=== PATIENT | male | born 1945 | race Caucasian/White ===

== ENCOUNTER 2018-05-18 18:18 | Inpatient (IN) | payer MEDICARE, OTHER ==
[~2018-05-18] VITALS: Ht 182.9 cm; Wt 109.0 kg
[~2018-05-18 18:18] MED LIST: BENADRYL; CETI10TA; FINA5TAB4; FLUT16SP24; GABA300C16; LISI10TA2; OMEP20CA16; PSEU1TAB
[2018-05-18] MEDS ORDERED: SOD CHLORIDE 0.9% 1,000 ML IV STA (19:01)
[2018-05-18] MEDS ORDERED: ONDANSETRON 4 MG INJ IV STA (19:01)
[2018-05-18] MEDS ORDERED: ALBUTEROL 0.083% (NEB) 2.5 MG/3 ML AMP NEB STA (19:42)
[2018-05-18] MEDS ORDERED: LORAZEPAM 2 MG INJ IV ONE (20:30)
--- NOTE | 2018-05-18 21:04 | ERD ---
ER Documentation Chief Complaint Chief Complaint bib ra from home for n/v, patient drinks 1 liter etoh a day HPI This is a 72-year-old male who is an alcoholic and drinks he says a liter of whiskey a day. He said that he has been vomiting once a day for the past 3 days and his last drink was about 5 PM today and he is afraid he is going to go and withdraws. His vomit is nonbloody nonbilious. No melena no GI bleed from below. Is also been coughing for 3-4 days with white sputum production but no shortness of breath no leg swelling no fever ROS All systems reviewed and are negative except as per history of present illness. Medications Home Meds Reported Medications Fluticasone Propionate* (Flonase* Nasal) 16 Gm [place].susp 12/01/09 [Benadryl] No Conflict Check 12/01/09 Pseudoephedrine Hcl/Chlor-Mal (Sudafed Cold-Allergy Tablet) 1 Tab Tablet 12/01/09 Cetirizine Hcl (Zyrtec) 10 Mg Tab.chew 12/01/09 Finasteride* (Finasteride*) 5 Mg Tablet 12/01/09 Lisinopril* (Lisinopril*) 10 Mg Tablet 12/01/09 Omeprazole* (Omeprazole*) 20 Mg Capsule. 12/01/09 Gabapentin* (Gabapentin*) 300 Mg Capsule 12/01/09 Allergies Allergies: Coded Allergies: Cephalexin (Verified Allergy, Mild, 12/01/09) PMhx/Soc History of Surgery: Yes (Hernia Repair (2008)) Anesthesia Reaction: No Hx Neurological Disorder: No Hx Respiratory Disorders: No Hx Cardiac Disorders: Yes (HTN) Hx Psychiatric Problems: Yes (ETOH) Hx Miscellaneous Medical Probl: No Hx Alcohol Use: Yes (1L whiskey daily x the past week (May 2018)) Hx Substance Use: No Hx Tobacco Use: No Smoking Status: Never smoker FmHx Family History: No coronary disease Physical Exam Vitals Vital Signs Date Temp Pulse Resp B/P (MAP) Pulse Ox O2 O2 Flow FiO2 Time Delivery Rate 05/18/18 87 22 97 21 20:13 05/18/18 98.1 80 16 128/60 98 18:21 (82) Physical Exam Const: Well-developed, well-nourished Head: Atraumatic, normocephalic Eyes: Normal Conjunctiva, PERRLA, EOMI, normal sclera, no nystagmus ENT: Normal External Ears, Nose and Mouth, moist mucus membranes. Neck: Full range of motion. No meningismus, no lymphadenopathy. Resp: Clear to auscultation bilaterally, no wheezing, rhonchi, rales Cardio: Regular rate and rhythm, no murmurs, S1 S2 present Abd: Soft, non tender x 4, non distended. Normal bowel sounds, no guarding or rebound, no pulsitile abdominal masses or bruits Skin: No petechiae or rashes, no ecchymosis , no maculopapular rash Back: No midline or flank tenderness Ext: No cyanosis, or edema, FROM x 4, the distal portion of all of his toes show some erythema but no swelling, neurovascularly intact x 4 Neur: Awake and alert, STR 5/5 x 4, sensation intact x 4, no focal findings, cerebellum intact Psych: Normal Mood and Affect Result Diagram: 05/18/18190805/18/181908 Results 24 hrs Laboratory Tests Test 05/18/18 19:09 White Blood Count 12.7 10^3/ul Red Blood Count 4.57 10^6/ul Hemoglobin 13.8 g/dl Hematocrit 41.1 % Mean Corpuscular Volume 89.9 fl Mean Corpuscular Hemoglobin 30.2 pg Mean Corpuscular Hemoglobin Concent 33.6 g/dl Red Cell Distribution Width 17.7 % Platelet Count 327 10^3/UL Mean Platelet Volume 8.8 fl Immature Granulocytes % 0.600 % Neutrophils % 40.5 % Lymphocytes % 49.7 % Monocytes % 7.3 % Eosinophils % 1.3 % Basophils % 0.6 % Nucleated Red Blood Cells % 0.0 /100WBC Immature Granulocytes # 0.080 10^3/ul Neutrophils # 5.1 10^3/ul Lymphocytes # 6.3 10^3/ul Monocytes # 0.9 10^3/ul Eosinophils # 0.2 10^3/ul Basophils # 0.1 10^3/ul Nucleated Red Blood Cells # 0.0 10^3/ul Sodium Level 141 mmol/L Potassium Level 4.2 mmol/L Chloride Level 93 mmol/L Carbon Dioxide Level 32 mmol/L Anion Gap 16 Blood Urea Nitrogen 19 mg/dl Creatinine 1.01 mg/dl Est Glomerular Filtrat Rate mL/min mL/min Glucose Level 97 mg/dl Calcium Level 9.9 mg/dl Total Bilirubin 0.4 mg/dl Direct Bilirubin 0.00 mg/dl Indirect Bilirubin 0.4 mg/dl Aspartate Amino Transf (AST/SGOT) 97 IU/L Alanine Aminotransferase (ALT/SGPT) 78 IU/L Alkaline Phosphatase 125 IU/L Total Protein 7.9 g/dl Albumin 4.7 g/dl Globulin 3.20 g/dl Albumin/Globulin Ratio 1.46 Lipase 160 U/L Current Medications Medications Dose Sig/Shelley Start Time Status Last (Trade) Ordered Route PRN Stop Time Admin Dose Reason Admin Sodium 1,000 ml @ Q1H STAT 05/18/18 DC 05/18/18 Chloride 1,000 mls/hr IV 19:01 05/18/18 19:12 20:00 Ondansetron 4 mg ONCE STAT 05/18/18 DC 05/18/18 HCl (Zofran IV 19:01 05/18/18 19:12 Inj) 19:03 Albuterol 7.5 mg ONCE STAT 05/18/18 DC 05/18/18 (Proventil NEB 19:42 05/18/18 20:13 0.083% (Neb)) 19:44 Lorazepam 1 mg ONCE ONCE 05/18/18 DC 05/18/18 (Ativan) IV 20:30 05/18/18 20:06 20:31 Procedures/MDM Ordering MD: MAN BERGERON DO Location: E/R Room/Bed: PROCEDURE: XR Chest. CLINICAL INDICATION: Asthma exacerbation TECHNIQUE: A single portable view of the chest was obtained. COMPARISON: None FINDINGS: The aorta is tortuous and atherosclerotic. The cardiomediastinal silhouette is otherwise within normal limits. The right hemidiaphragm is elevated. The lungs and pleural spaces are otherwise clear. The soft tissues and osseous structures demonstrate benign age related senescent changes. IMPRESSION: No acute cardiopulmonary disease. RPTAT: HPNM Physician [place] Date Time Electronically viewed and signed by Sin Joseph Physician on 05/18/2018 21:09 / CC: MAN BERGERON DO [id number] The patient was given fluids and Ativan 1 mg IV. Patient has some bronchitis we will treat with Zithromax prednisone and albuterol and Ativan. Patient feels much better at this time, and vital signs are normal, symptoms have improved. I did give strict instructions to return to the ED if symptoms continue or worsen, patient will otherwise follow-up with primary care physician. Patient understood instructions and agreed to plan. Disclaimer: Inadvertent spelling and grammatical errors are likely due to EHR/dictation software use and do not reflect on the overall quality of patient care. Also, please note that the electronic time recorded on this note does not necessarily reflect the actual time of the patient encounter. Departure Diagnosis: Primary Impression: Alcohol abuse Additional Impression: Bronchitis Condition: Stable MAN BERGERON DO May 18, 2018 21:04
[2018-05-18] MEDS ORDERED: AZIT250T PO (21:21)
[2018-05-18] MEDS ORDERED: LORA1TAB PO (21:21)
[2018-05-18] MEDS ORDERED: PRED20TA PO (21:21)
[2018-05-18] MEDS ORDERED: ALBU8.5H8 INH (21:21)
[2018-05-19] MEDS ORDERED: LORAZEPAM 2 MG INJ IV ONE (05:00)
[2018-05-19] MEDS ORDERED: MAGNESIUM SULFATE 2 GM, MULTIVITAMINS 10 ML, THIAMINE 100 MG, FOLIC ACID 1 MG in SOD CH... IV STA (09:21)
[2018-05-19] MEDS ORDERED: LORAZEPAM 2 MG INJ IV STA (09:21)
[2018-05-19] MEDS ORDERED: LABETALOL HCL 20MG INJ IV ONE (09:30)
[2018-05-19] MEDS ORDERED: ACETAMINOPHEN 325 MG TAB PO PRN (11:00)
[2018-05-19] MEDS ORDERED: ONDANSETRON 4 MG INJ IV PRN (11:00)
--- NOTE | 2018-05-19 11:32 | HP ---
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 Unclear what to make of this. 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 My exam now does show any signs of neurologic process, but is limited by his somnolence. Will have to be repeated tomorrow Result Diagram: 05/19/18 0945 05/19/18 0945 Results 24hrs Laboratory Tests Test 05/18/18 19:09 05/19/18 09:45 White Blood Count 12.7 H 10.1 # Red Blood Count 4.57 L 4.58 L Hemoglobin 13.8 L 13.6 L Hematocrit 41.1 L 41.2 L Mean Corpuscular Volume 89.9 90.0 Mean Corpuscular Hemoglobin 30.2 29.7 Mean Corpuscular Hemoglobin Concent 33.6 33.0 Red Cell Distribution Width 17.7 H 18.0 H Platelet Count 327 283 Mean Platelet Volume 8.8 9.1 Immature Granulocytes % 0.600 H 0.600 H Neutrophils % 40.5 61.5 Lymphocytes % 49.7 26.6 Monocytes % 7.3 10.5 Eosinophils % 1.3 0.3 Basophils % 0.6 0.5 Nucleated Red Blood Cells % 0.0 0.0 Immature Granulocytes # 0.080 H 0.060 H Neutrophils # 5.1 6.2 Lymphocytes # 6.3 H 2.7 Monocytes # 0.9 1.1 H Eosinophils # 0.2 0.0 Basophils # 0.1 0.1 Nucleated Red Blood Cells # 0.0 0.0 Sodium Level 141 141 Potassium Level 4.2 4.1 Chloride Level 93 L 97 Carbon Dioxide Level 32 H 32 H Anion Gap 16 H 12 Blood Urea Nitrogen 19 22 H Creatinine 1.01 0.83 Est Glomerular Filtrat Rate mL/min Glucose Level 97 148 # Calcium Level 9.9 9.6 Total Bilirubin 0.4 0.6 Direct Bilirubin 0.00 0.00 Indirect Bilirubin 0.4 0.6 Aspartate Amino Transf (AST/SGOT) 97 H 74 H Alanine Aminotransferase (ALT/SGPT) 78 H 76 H Alkaline Phosphatase 125 H 105 Total Protein 7.9 6.8 # Albumin 4.7 4.3 Globulin 3.20 2.50 Albumin/Globulin Ratio 1.46 1.72 Lipase 160 Ethyl Alcohol Level < 10.0 H HPI/ROS Admit Date/Time Admit Date/Time Hx of Present Illness 72 yo male presenting requesting detox Patient heavy alcohol use. Came in overnight requesting "detox". Daily alcohol use. Says when he doesn't drink he gets "DTs" and feels like he has them now. 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 He has received benzos and is currently somnulent wihtout any s/s of withdrawal. Mildly hypoxic, he reports productive cough. No fevers or chills. ROS Constitutional: no complaints, improved Eyes: no complaints ENT: no complaints Respiratory: no complaints Cardiovascular: no complaints Gastrointestinal: no complaints Genitourinary: no complaints Musculoskeletal: no complaints Skin: no complaints Neurologic: no complaints Endocrine: no complaints Lymphatic: no complaints Psychological: no complaints, nl mood/affect Immunologic: no complaints PMH/Family/Social Past Medical History Medical History: no pertinent history Medications Current Medications Ondansetron HCl (Zofran Inj) 4 mg ER BRIDGE PRN IV NAUSEA/VOMITING; Start 05/19 at 11:00; Stop 05/20/18 at 10:59 Acetaminophen (Tylenol Tab) 650 mg ER BRIDGE PRN PO .MILD PAIN 1-3 OR TEMP; Start 05/19/18 at 11:00; Stop 05/20/18 at 10:59 Coded Allergies: cephalexin (Verified Allergy, Mild, 12/01/09) Past Surgical History Past Surgical Hx: no surgical history Family History Significant Family History: no pertinent family hx Social History Alcohol Use: heavy Smoking Status: Never smoker Drug Use: none Exam/Review of Systems Vital Signs Vitals Vital Signs Date Temp Pulse Resp B/P (MAP) Pulse Ox O2 O2 Flow FiO2 Time Delivery Rate 05/19/18 104 22 195/95 93 Room Air 04:04 (128) 05/18/18 21 20:13 05/18/18 98.1 18:21 Intake and Output 05/18/18 05/18/18 05/19/18 1515:00 23:00 07:00 IntakeIntake Total 1000 ml BalanceBalance 1000 ml Exam Constitutional: alert, oriented, well developed Psych: no complaints, nl mood/affect Head: normocephalic, atraumatic Eyes: nl conjunctiva, EOMI, nl lids, nl sclera, PERRL ENMT: nl external ears & nose, nl lips & teeth, nl nasal mucosa & septum Neck: supple, non-tender Respiratory: clear to auscultation, normal air movement Cardiovascular: regular rate and rhythm, nl pulses Gastrointestinal: soft, nl liver, spleen, non-tender Musculoskeletal: nl extremities to inspection Extremities: normal pulses Neurological: PIN SORTER AND BAGGER II-XII intact, nl mental status, nl speech, nl strength Skin: nl turgor; No rash or lesions Lymph: nl lymph nodes KEATON GREY MD May 19, 2018 11:32
[2018-05-19] MEDS ORDERED: NACL 0.9% 3 ML SYG IV SCH (12:00)
--- NOTE | 2018-05-19 12:33 | EN ---
Date/Time of Note Date/Time of Note DATE: 05/19/18 TIME: 12:29 ER Progress Note This is a 72-year-old male who had been seen and evaluated with the previous ER physician. The patient was clinically intoxicated when he arrived to the hospital was subsequently awaiting discharge upon clinical sobriety. However the patient remained in the emergency department for over 13 hours. The patient stated he felt feelings of lightheadedness palpitations and extremely shaky. I went to the bedside to evaluate the patient. The patient was tachycardic and hypertensive. He was alert awake oriented x3 with asterixis. The patient at this time was given IV Ativan a banana bag and labetalol with improvement of his hypertension. The patient will be admitted to the hospitalist for impending delirium tremors. BETHANY BRADSHAW MD May 19, 2018 12:33
[2018-05-19] MEDS ORDERED: hydrALAzine 20 MG INJ IV ONE (14:00)
[2018-05-19 14:07] VITALS: BP 177/79; PULSE 98; RESP 24
[2018-05-19 14:13] VITALS: Ht 182.9 cm; Wt 109.0 kg
[2018-05-19 14:59] VITALS: PULSE 95
[2018-05-19 15:17] VITALS: BP 164/74; PULSE 92; RESP 18
[2018-05-19] MEDS: CHLORDIAZEPOXIDE 25 MG CAP PO PRN ×2 (15:51→20:19)
[2018-05-19 16:01] VITALS: PULSE 100
[2018-05-19] MEDS: PANTOPRAZOLE (EC) 40 MG TAB PO SCH (18:25)
[2018-05-19 19:34] VITALS: BP 154/75; PULSE 94; RESP 20
[2018-05-19 20:00] VITALS: PULSE 93
[2018-05-19] MEDS: THIAMINE 100 MG TAB PO SCH (20:18)
[2018-05-20] VITALS (11 sets, daily range): BP systolic 130–183; BP diastolic 60–85; PULSE 78–103; RESP 18–20
[2018-05-20] MEDS: CHLORDIAZEPOXIDE 25 MG CAP PO PRN ×6 (01:59→23:59)
[2018-05-20] MEDS: FOLIC ACID 1 MG TAB PO SCH (08:41)
[2018-05-20] MEDS: THIAMINE 100 MG TAB PO SCH (08:42)
[2018-05-20] MEDS: PANTOPRAZOLE (EC) 40 MG TAB PO SCH (08:42)
[2018-05-20] MEDS ORDERED: POTASSIUM CHLORIDE (SR) 20 MEQ TAB PO STA (09:54)
--- NOTE | 2018-05-20 16:29 | PN ---
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 but has no evidence of weakness at this time DC planning: Monitor for DTs overnight, anticipate DC home tomorrow Result Diagram: 05/20/1852305/20/18 0524 Results 24hrs Laboratory Tests Test 05/20/18 05:24 White Blood Count 7.1 # Red Blood Count 4.36 L Hemoglobin 13.0 L Hematocrit 39.6 L Mean Corpuscular Volume 90.8 Mean Corpuscular Hemoglobin 29.8 Mean Corpuscular Hemoglobin Concent 32.8 Red Cell Distribution Width 18.0 H Platelet Count 224 # Mean Platelet Volume 9.0 Immature Granulocytes % 0.600 H Neutrophils % 51.5 Lymphocytes % 31.4 Monocytes % 13.4 H Eosinophils % 2.5 Basophils % 0.6 Nucleated Red Blood Cells % 0.0 Immature Granulocytes # 0.040 H Neutrophils # 3.7 Lymphocytes # 2.2 Monocytes # 1.0 H Eosinophils # 0.2 Basophils # 0.0 Nucleated Red Blood Cells # 0.0 Sodium Level 141 Potassium Level 3.3 L Chloride Level 100 Carbon Dioxide Level 32 H Anion Gap 9 Blood Urea Nitrogen 17 Creatinine 0.84 Est Glomerular Filtrat Rate mL/min Glucose Level 98 # Hemoglobin A1c 5.8 Calcium Level 9.2 Total Bilirubin 0.7 Direct Bilirubin 0.00 Indirect Bilirubin 0.7 Aspartate Amino Transf (AST/SGOT) 57 H Alanine Aminotransferase (ALT/SGPT) 57 Alkaline Phosphatase 81 Total Protein 6.4 Albumin 3.8 Globulin 2.60 Albumin/Globulin Ratio 1.46 Subjective 24 Hr Interval Summary Constitutional: no complaints Exam/Review of Systems Exam Vitals Vital Signs Date Temp Pulse Resp B/P (MAP) Pulse Ox O2 O2 Flow FiO2 Time Delivery Rate 05/20/18 98.6 102 20 142/85 93 15:07 (104) 05/20/18 Room Air 11:40 05/19/18 2.0 20:00 05/18/18 21 20:13 Intake and Output 05/19/18 05/19/18 05/20/18 1515:00 23:00 07:00 IntakeIntake Total 650 ml 350 ml OutputOutput Total 1200 ml 1000 ml BalanceBalance -550 ml -650 ml Constitutional: alert, oriented Respiratory: clear to auscultation Cardiovascular: regular rate and rhythm Gastrointestinal: soft; No distended Musculoskeletal: nl extremities to inspection Results Results 24hrs Laboratory Tests Test 05/20/18 05:24 White Blood Count 7.1 # Red Blood Count 4.36 L Hemoglobin 13.0 L Hematocrit 39.6 L Mean Corpuscular Volume 90.8 Mean Corpuscular Hemoglobin 29.8 Mean Corpuscular Hemoglobin Concent 32.8 Red Cell Distribution Width 18.0 H Platelet Count 224 # Mean Platelet Volume 9.0 Immature Granulocytes % 0.600 H Neutrophils % 51.5 Lymphocytes % 31.4 Monocytes % 13.4 H Eosinophils % 2.5 Basophils % 0.6 Nucleated Red Blood Cells % 0.0 Immature Granulocytes # 0.040 H Neutrophils # 3.7 Lymphocytes # 2.2 Monocytes # 1.0 H Eosinophils # 0.2 Basophils # 0.0 Nucleated Red Blood Cells # 0.0 Sodium Level 141 Potassium Level 3.3 L Chloride Level 100 Carbon Dioxide Level 32 H Anion Gap 9 Blood Urea Nitrogen 17 Creatinine 0.84 Est Glomerular Filtrat Rate mL/min Glucose Level 98 # Hemoglobin A1c 5.8 Calcium Level 9.2 Total Bilirubin 0.7 Direct Bilirubin 0.00 Indirect Bilirubin 0.7 Aspartate Amino Transf (AST/SGOT) 57 H Alanine Aminotransferase (ALT/SGPT) 57 Alkaline Phosphatase 81 Total Protein 6.4 Albumin 3.8 Globulin 2.60 Albumin/Globulin Ratio 1.46 Medications Medication Current Medications IV Flush (NS 3 ml) 3 ml PER PROTOCOL IV Last administered on 05/19/18at 20:33; Admin Dose 3 ML; Start 05/19/18 at 12:00 Chlordiazepoxide (Librium) 25 mg Q4H PRN PO alcohol withdrawal Last administered on 05/20/18at 15:48; Admin Dose 25 MG; Start 05/19/18 at 12:00 Thiamine HCl (Vitamin B1) 500 mg BID PO Last administered on 05/20/18 08:42; Admin Dose 500 MG; Start 05/19/18 at 21:00 Folic Acid (Folic Acid) 1 mg DAILY PO Last administered on 05/20/18 08:41; Admin Dose 1 MG; Start 05/20/18 at 09:00 Pantoprazole (Protonix Tab) 40 mg DAILY PO Last administered on 05/20/18 08:42; Admin Dose 40 MG; Start 05/19/18 at 17:00 KEITH SAUCEDA May 20, 2018 16:29
[2018-05-20] MEDS ORDERED: AL HYDROX/MG HYDROX/SIMETH 30 ML CUP PO PRN (18:00)
[2018-05-20] MEDS ORDERED: SOD CHLORIDE 0.9% 1,000 ML IV SCH (22:00)
[2018-05-20] MEDS: MULTIVITAMINS 10 ML, THIAMINE 100 MG, FOLIC ACID 1 MG in SOD CHLORIDE 0.9% 1,000 ML IVPB SCH (22:10)
[2018-05-21] VITALS (10 sets, daily range): BP systolic 118–190; BP diastolic 57–95; PULSE 81–108; RESP 18–21
[2018-05-21] MEDS ORDERED: hydrALAzine 20 MG INJ IV ONE (03:30)
[2018-05-21] MEDS: CHLORDIAZEPOXIDE 25 MG CAP PO PRN ×4 (06:41→20:42)
[2018-05-21] MEDS: LISINOPRIL 5 MG TAB PO SCH (08:03)
[2018-05-21] MEDS: PANTOPRAZOLE (EC) 40 MG TAB PO SCH (08:03)
[2018-05-21] MEDS: FOLIC ACID 1 MG TAB PO SCH (08:03)
[2018-05-21] MEDS: MULTIVITAMINS 10 ML, THIAMINE 100 MG, FOLIC ACID 1 MG in SOD CHLORIDE 0.9% 1,000 ML IVPB SCH (08:04)
[2018-05-21] MEDS ORDERED: POTASSIUM CHLORIDE (SR) 20 MEQ TAB PO STA (10:16)
[2018-05-21] MEDS ORDERED: CHLO25CA9 PO (10:18)
--- NOTE | 2018-05-21 10:18 | PDOCDIS ---
Discharge Instructions CONDITION [id number] Patient Condition: [id number] Good HOME CARE INSTRUCTIONS: [id number] Diet Instructions: [id number] Regular ACTIVITY: [id number] Activity Restrictions: [id number] No Restrictions FOLLOW UP/APPOINTMENTS Follow-up Plan FOLLOW UP WITH YOUR PCP IN 1-2 WEEKS KEITH SAUCEDA May 21, 2018 10:18
--- NOTE | 2018-05-21 14:46 | DS ---
Date/Time of Note Date/Time of Note DATE: 05/21/18 TIME: 14:42 Discharge Summary Admission/Discharge Info Admit Date/Time May 19, 2018 at 10:36 Discharge Date/Time May 21, 2018 Discharge Diagnosis 1. 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 Alcohol abuse Cessation advised Status post banana bag 3. History of GBS per patient This is a reported diagnosis with no objective evidence, patient claims to have had GBS 10 years ago and was ambulating on his own since then until this ad mission Patient Condition: Good Hospital Course Patient is a 72-year-old male with a history of alcohol abuse, GBS reportedly diagnosed 10 years ago with recovery of functional status. Patient does live alone at home and was able to perform ADLs, patient presents with alcohol abuse and withdrawal and was found to have profound weakness with PT evaluation. Patient is being transferred to acute rehab to continue PT for alcohol neuropathy. Patient is status post banana bag, patient has no evidence of alcohol withdrawal at this time. Patient stable for DC, on the day of discharge patient's vitals, labs and physical exam are stable. Home Meds Active Scripts Chlordiazepoxide* (Chlordiazepoxide*) 25 Mg Capsule, 25 MG PO Q8 PRN for CONTROL WITHDRAWAL SYMPTOMS, #30 CAP Prov:KEITH SAUCEDA 05/21/18 Prednisone* (Prednisone*) 20 Mg Tab, 60 MG PO DAILY for 5 Days, TAB Prov:MAN BERGERON DO 05/18/18 Albuterol Sulfate* (Proair HFA*) 8.5 Gm [place].aer.ad, 2 PUFF INH Q4, #1 INHALER Prov:MAN BERGERON DO 05/18/18 Lorazepam* (Lorazepam*) 1 Mg Tablet, 1 MG PO Q8H PRN for ANXIETY, #10 TAB Prov:MAN BERGERON DO 05/18/18 Discontinued Reported Medications Fluticasone Propionate* (Flonase* Nasal) 16 Gm [place].susp 12/01/09 [Benadryl] No Conflict Check 12/01/09 Pseudoephedrine Hcl/Chlor-Mal (Sudafed Cold-Allergy Tablet) 1 Tab Tablet 12/01/09 Cetirizine Hcl (Zyrtec) 10 Mg Tab.chew 12/01/09 Finasteride* (Finasteride*) 5 Mg Tablet 12/01/09 Lisinopril* (Lisinopril*) 10 Mg Tablet 12/01/09 Omeprazole* (Omeprazole*) 20 Mg Capsule. 12/01/09 Gabapentin* (Gabapentin*) 300 Mg Capsule 12/01/09 Discontinued Scripts Azithromycin* (Zithromax*) 250 Mg Tablet, 250 MG PO .MARC DIRECTED, #6 TAB TAKE 500 MG (2 TABS) THE FIRST DAY THEN 250 MG (1 TAB) DAYS 2-5 Prov:MAN BERGERON DO 05/18/18 Follow-up Plan Follow-up with physicians at acute rehab Primary Care Provider Not On Staff Doctor Time spent on discharge: > 30 minutes KEITH SAUCEDA May 21, 2018 14:46
[2018-05-22] MEDS: CHLORDIAZEPOXIDE 25 MG CAP PO PRN ×3 (00:46→16:45)
[2018-05-22 01:36] VITALS: BP 147/76; PULSE 94; RESP 18
[2018-05-22] MEDS: PANTOPRAZOLE (EC) 40 MG TAB PO SCH (06:35)
[2018-05-22 08:01] VITALS: BP 189/95; PULSE 96; RESP 16
[2018-05-22] MEDS: MULTIVITAMINS 10 ML, THIAMINE 100 MG, FOLIC ACID 1 MG in SOD CHLORIDE 0.9% 1,000 ML IVPB SCH (09:18)
[2018-05-22] MEDS: FOLIC ACID 1 MG TAB PO SCH (09:18)
[2018-05-22] MEDS: LISINOPRIL 5 MG TAB PO SCH (11:03)
--- NOTE | 2018-05-22 12:13 | DS ---
Date/Time of Note Date/Time of Note DATE: 05/22/18 TIME: 12:12 Discharge Summary Admission/Discharge Info Admit Date/Time May 19, 2018 Discharge Date/Time May 22, 2018 Discharge Diagnosis 1. 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 Alcohol abuse Cessation advised Status post banana bag 3. History of GBS per patient This is a reported diagnosis with no objective evidence, patient claims to have had GBS 10 years ago and was ambulating on his own since then until this admission Patient Condition: Fair Hospital Course Patient is a 72-year-old male with a history of alcohol abuse, GBS reportedly diagnosed 10 years ago with recovery of functional status. Patient does live alone at home and was able to perform ADLs, patient presents with alcohol abuse and withdrawal and was found to have profound weakness with PT evaluation. Patient is being transferred to acute rehab to continue PT for alcohol neuropathy. Patient is status post banana bag, patient has no evidence of alcohol withdrawal at this time. Patient stable for DC, on the day of discharge patient's vitals, labs and physical exam are stable. Home Meds Active Scripts Chlordiazepoxide* (Chlordiazepoxide*) 25 Mg Capsule, 25 MG PO Q8 PRN for CONTROL WITHDRAWAL SYMPTOMS, #30 CAP Prov:KEITH SAUCEDA 05/21/18 Prednisone* (Prednisone*) 20 Mg Tab, 60 MG PO DAILY for 5 Days, TAB Prov:MAN BERGERON DO 05/18/18 Albuterol Sulfate* (Proair HFA*) 8.5 Gm Hfa.aer.ad, 2 PUFF INH Q4, #1 INHALER Prov:MAN BERGERON DO 05/18/18 Lorazepam* (Lorazepam*) 1 Mg Tablet, 1 MG PO Q8H PRN for ANXIETY, #10 TAB Prov:MAN BERGERON DO 05/18/18 Discontinued Reported Medications Fluticasone Propionate* (Flonase* Nasal) 16 Gm [place].susp 12/01/09 [Benadryl] No Conflict Check 12/01/09 Pseudoephedrine Hcl/Chlor-Mal (Sudafed Cold-Allergy Tablet) 1 Tab Tablet 12/01/09 Cetirizine Hcl (Zyrtec) 10 Mg Tab.chew 9/22/10 Finasteride* (Finasteride*) 5 Mg Tablet 12/01/09 Lisinopril* (Lisinopril*) 10 Mg Tablet 12/01/09 Omeprazole* (Omeprazole*) 20 Mg Capsule. 12/01/09 Gabapentin* (Gabapentin*) 300 Mg Capsule 12/01/09 Discontinued Scripts Azithromycin* (Zithromax*) 250 Mg Tablet, 250 MG PO .MARC DIRECTED, #6 TAB TAKE 500 MG (2 TABS) THE FIRST DAY THEN 250 MG (1 TAB) DAYS 2-5 Prov:MAN BERGERON DO 05/18/18 Follow-up Plan Follow-up with physicians at acute rehab Primary Care Provider Not On Staff Doctor Time spent on discharge: > 30 minutes KEITH SAUCEDA May 22, 2018 12:13
[2018-05-22 14:04] VITALS: BP 145/67; PULSE 96; RESP 16
[2018-05-22 19:25] VITALS: BP 175/79; PULSE 95; RESP 18
== END 2018-05-22 19:40 | DRG 74 ==
LOC: E/R 18:18 → 6WM 05-19 11:00 → OBSVTOIN 05-21 10:36 → 2NE 05-21 21:00
PROVIDERS: ADMIT Internal Medicine; ATTEND Internal Medicine
DX: G62.1 Alcoholic polyneuropathy (principal); F10.230 Alcohol dependence with withdrawal, uncomplicated; G61.0 Guillain-Barre syndrome; F10.239 Alcohol dependence with withdrawal, unspecified; I10 Essential (primary) hypertension; Y90.0 Blood alcohol level of less than 20 mg/100 ml; F10.229 Alcohol dependence with intoxication, unspecified
CPT/HCPCS: 36415; 71045; 80048; 80053; 80307; 83036; 83690; 83735; 84100; 85025; 94664; 96361; 96374; 96375; 96376; 97116; 97162; 97530; G0378; J0360; J2060; J2405; J3411; J3475; J7030

== ENCOUNTER 2018-05-22 19:20 | Inpatient (IN) | payer MEDICARE ==
[~2018-05-22] VITALS: Ht 184.2 cm; Wt 124.5 kg
[~2018-05-22 19:20] MED LIST changes: +ALBU8.5H8 INH; -BENADRYL; -CETI10TA; +CHLO25CA9 PO; -FINA5TAB4; -FLUT16SP24; -GABA300C16; -LISI10TA2; +LORA1TAB PO; -OMEP20CA16; +PRED20TA PO; -PSEU1TAB
[2018-05-22 21:00] VITALS: BP 150/82; PULSE 92; RESP 18; Ht 184.2 cm; Wt 124.5 kg
[2018-05-22] MEDS ORDERED: hydrALAzine 20 MG INJ IV ONE (22:30)
[2018-05-22] MEDS ORDERED: NACL 0.9% 3 ML SYG IV SCH (23:45)
[2018-05-23] VITALS (8 sets, daily range): BP systolic 133–184; BP diastolic 59–86; PULSE 86–102; RESP 16–20
[2018-05-23] MEDS: CHLORDIAZEPOXIDE 25 MG CAP PO PRN ×4 (00:53→19:32)
[2018-05-23] MEDS ORDERED: LACTULOSE 30ML CUP PO PRN (02:30)
[2018-05-23] MEDS ORDERED: MAGNESIUM HYDROXIDE 30ML CUP PO PRN (02:30)
[2018-05-23] MEDS ORDERED: ACETAMINOPHEN 325 MG TAB PO PRN (02:30)
[2018-05-23] MEDS ORDERED: BISACODYL 10 MG SUPP PR PRN (02:30)
[2018-05-23] MEDS: PANTOPRAZOLE (EC) 40 MG TAB PO SCH (05:49)
[2018-05-23] MEDS ORDERED: LISINOPRIL 5 MG TAB PO SCH (09:00)
[2018-05-23] MEDS ORDERED: MULTIVITAMINS 10 ML, THIAMINE 100 MG, FOLIC ACID 1 MG in SOD CHLORIDE 0.9% 1,000 ML IV SCH (09:00)
[2018-05-23] MEDS: DOCUSATE SODIUM 100 MG CAP PO SCH ×2 (09:00→20:45)
[2018-05-23] MEDS: FOLIC ACID 1 MG TAB PO SCH (10:03)
--- NOTE | 2018-05-23 11:11 | CONS ---
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 ACTIVE COMORBIDITIES: 1. Status post ETOH withdrawal. 2. Hypertension. 3. Impairments in self-care and mobility. HISTORY OF PRESENT ILLNESS: The patient is a 72-year-old gentleman with a history of Guillain-[place] syndrome in addition to ETOH abuse, who presented with complaints of delirium tremens. The patient requested alcohol detoxification for heavy alcohol abuse. The patient noted to have some somnolence, hypoxemia, productive cough in addition to polyneuropathy. The patient's overall medical status has been improving. The patient is noted to have significant impairments in self-care and mobility as compared to baseline. The patient has been cleared to transfer to the rehabilitation unit for comprehensive interdisciplinary rehab care. FUNCTIONAL HISTORY: Prior to recent events, he was independent in self-care tasks and mobility. Currently, requires moderate assist for self-care and mobility tasks. I have reviewed the preadmission screen and patient's current functional status is consistent with the preadmission screen. FAMILY AND SOCIAL HISTORY: The patient reportedly lives at home and does hope to return there upon discharge. PAST MEDICAL HISTORY: 1. 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 2. Hypertension. 3. Allergic rhinitis. 4. History of alcohol abuse. PHYSICAL EXAMINATION: VITAL SIGNS: The patient is currently afebrile with stable vital signs. HEENT: Extraocular motions are intact. Oropharynx is clear. NECK: Supple. LUNGS: Clear anteriorly. CARDIAC: S1, S2. ABDOMEN: Soft, nontender, positive bowel sounds. NEUROLOGIC: He is awake and alert. He is oriented to person, hospital and date. He will follow simple 1-step commands. He demonstrates antigravity strength in bilateral upper extremity and lower extremity. He does have impaired dynamic balance. PLAN: The patient has been admitted for comprehensive interdisciplinary acute rehab and is anticipated to tolerate 3 hours of daily therapy in divided doses for at least 5/7 days a week. The treatment plan will include: 1. Physical therapy to focus on bed mobility, transfers, and household ambulation with the goal of having the patient reach a standby assist level. 2. Occupational therapy to focus on hygiene, grooming, dressing, bathing, and toileting activities with goal of having patient reach standby assist level. 3. Rehabilitation nursing for carryover of therapeutic interventions, the goal of continent of bowel and bladder, and the goal of patient education with regards to the aforementioned issues. 4. Rehabilitation. high worker for social media community manager education in addition to referral for Alcoholics Anonymous and appropriate psychosocial followup. REHABILITATION BARRIER: Numbness. INTERVENTION FOR BARRIER: Interdisciplinary rehabilitation. ESTIMATED LENGTH OF STAY: 10 days. DISPOSITION GOAL: Home. I acknowledge that I performed a full physical examination on this patient within 24 hours of admission to the rehabilitation unit. I believe the patient is a good candidate for comprehensive interdisciplinary rehab care and is anticipated to make reasonable goals in a reasonable period of time as outlined above. Dictated By: YULIANA ROBLES MD LY/NTS Conf#: [id number] DID#: [id number] CC: TRISTAN ARAGON MD; YULIANA ROBLES MD;*EndCC* MTDD
[2018-05-23] MEDS ORDERED: LISINOPRIL 5 MG TAB PO ONE (13:00)
--- NOTE | 2018-05-23 13:01 | HP ---
Date/Time of Note Date/Time of Note DATE: 05/23/18 TIME: 12:57 Assessment/Plan VTE Prophylaxis Risk score (from Nsg)>0 risk: 4 SCD applied (from Nsg): Yes Pharmacological prophylaxis: NA/contraindicated Pharm contraindication: low risk/ambulating Lines/Catheters IV Catheter Type (from Nrsg): Saline Lock Urinary Cath still in place: No Assessment/Plan Hospital Course SUBJECTIVE: Lying in bed, no acute distress OBJECTIVE: Vital signs-see below PHYSICAL EXAM: Constitutional: obese male, lying in bed comfortably. Psych: nl mood/affect, no complaints Head: atraumatic, normocephalic Eyes: nl conjunctiva, nl sclera ENMT: mucosa pink and moist, nl external ears & nose Neck: non-tender, supple Respiratory: clear to auscultation, normal air movement Cardiovascular: nl pulses, regular rate and rhythm Gastrointestinal: non-tender, soft, bowel sounds active in all 4 quadrants. Musculoskeletal/extremities: nl extremities to inspection, motor strength equal bilaterally, no focal deficit. Normal pulses,no cyanosis, no edema. Neurological: Alert oriented 3,nl speech, nl strength Skin: nl turgor ASSESSMENT/PLAN: 72-year-old male with EtOH abuse, GBS,, hypertension, transferred to acute rehabilitation unit after patient was treated for EtOH intoxication at [facility]. 1. Polyneuropathy/GBS -Continue rehab 2. EtOH abuse, status post intoxication -Currently stable. DC IV banana bag, Librium. Will transition patient to oral folate and thiamine supplementation. -Alcohol cessation advised 3. Hypertension, suboptimal control -Patient received IV hydralazine overnight. At this time, I recommend increasing lisinopril to 10 mg and monitor his blood pressure over the next 24 hours for further adjustment. 4. 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 -Able H&H. Continue to monitor. 5. Obesity with a BMI 36.7. -Recommend obtaining A1c and lipid panel in a.m. DVT prophylaxis: SCDs/ambulation. Patient is medically stable for starting physical therapy and acute rehabilitation unit. Approximately 60 m spent on this history and physical. Patient was seen in collaboration with . Result Diagram: 05/23/18 0701 05/23/18 0701 Results 24hrs Laboratory Tests Test 05/23/18 00:55 05/23/18 07:01 Urine Color YELLOW Urine Clarity CLEAR Urine pH 5.0 Urine Specific [place] 1.017 Urine Ketones NEGATIVE Urine Nitrite NEGATIVE Urine Bilirubin NEGATIVE Urine Urobilinogen NEGATIVE Urine Leukocyte Esterase TRACE A Urine Microscopic RBC 0 Urine Microscopic WBC 6 H Urine Mucus FEW A Urine Hemoglobin NEGATIVE Urine Glucose NEGATIVE Urine Total Protein NEGATIVE White Blood Count 10.0 # Red Blood Count 4.09 L Hemoglobin 12.2 L Hematocrit 38.2 L Mean Corpuscular Volume 93.4 Mean Corpuscular Hemoglobin 29.8 Mean Corpuscular Hemoglobin Concent 31.9 L Red Cell Distribution Width 17.8 H Platelet Count 215 Mean Platelet Volume 9.6 Immature Granulocytes % 0.700 H Neutrophils % 57.1 Lymphocytes % 27.4 Monocytes % 11.0 Eosinophils % 3.4 Basophils % 0.4 Nucleated Red Blood Cells % 0.0 Immature Granulocytes # 0.070 H Neutrophils # 5.7 Lymphocytes # 2.7 Monocytes # 1.1 H Eosinophils # 0.3 Basophils # 0.0 Nucleated Red Blood Cells # 0.0 Sodium Level 139 Potassium Level 3.8 Chloride Level 107 Carbon Dioxide Level 19 L Anion Gap 13 Blood Urea Nitrogen 17 Creatinine 0.60 L Est Glomerular Filtrat Rate mL/min Glucose Level 93 Calcium Level 8.3 L Total Bilirubin 0.3 Direct Bilirubin 0.00 Indirect Bilirubin 0.3 Aspartate Amino Transf (AST/SGOT) 71 H Alanine Aminotransferase (ALT/SGPT) 81 H Alkaline Phosphatase 89 Total Protein 6.0 L Albumin 3.5 Globulin 2.50 Albumin/Globulin Ratio 1.40 HPI/ROS Admit Date/Time Admit Date/Time May 22, 2018 at 19:59 Hx of Present Illness This is a 72-year-old male with EtOH abuse, GBS, who was admitted at [facility] on 05/19/2018 with alcohol intoxication. Patient was treated with IV thiamine, Librium for DTs. He did well and did not have any further withdrawal symptoms. Patient then had physical therapy evaluation as he also found to have polyneuropathy/Guillain-[place] syndrome. He was then accepted to acute rehabilitation unit for further rehabilitation on 05/23/2018. At my encounter with the patient, he denied chest pain, palpitation, shortness of breath, nausea, vomiting, numbness, tingling, loss of consciousness, dizziness or other constitutional symptoms. Patient did not have any fevers or chills. Labs showed hemoglobin 12.2, hematocrit 38.2. Otherwise unremarkable. Patient has been having elevated blood pressure ranging 182/86, 184/84 and he also required a dose of IV hydralazine overnight. ROS A 12 point review of system was assessed and is negative other than what is mentioned in the HPI. PMH/Family/Social Past Medical History See HPI Medications Current Medications Al Hydrox/Mg Hydrox/Simethicone (Mag-Al Plus) 30 ml Q6H PRN PO GASTROINTESTINAL UPSET; Start 05/22/18 at 23:30 Chlordiazepoxide (Librium) 25 mg Q4H PRN PO ANXIETY Last administered on 05/23/18at 10:11; Admin Dose 25 MG; Start 05/22/18 at 23:30 Folic Acid (Folic Acid) 1 mg DAILY PO Last administered on 05/23/18at 10:03; Admin Dose 1 MG; Start 05/23/18 at 09:00 Pantoprazole (Protonix Tab) 40 mg DAILY@06 PO Last administered on 05/23/18at 05:49; Admin Dose 40 MG; Start 05/23/18 at 06:00 IV Flush (NS 3 ml) 3 ml PER PROTOCOL IV ; Start 05/22/18 at 23:45 Multivitamins 10 ml/Thiamine HCl 100 mg/Folic Acid 1 mg/Sodium Chloride 1,011.2 ml @ 125 mls/ hr DAILY IV Last administered on 05/23/18at 10:13; Admin Dose 125 MLS/HR; Start 05/23/18 at 09:00; Stop 05/23/18 at 23:00 Docusate Sodium (Colace) 100 mg BID PO ; Start 05/23/18 at 09:00 Senna (Senokot) 1 tab HS PO ; Start 05/23/18 at 21:00 Acetaminophen (Tylenol Tab) 650 mg Q4H PRN PO MILD PAIN(1-3)OR ELEVATED TEMP; Start 05/23/18 at 02:30 Bisacodyl (Dulcolax Supp) 10 mg DAILY PRN [place] CONSTIPATION; Start 05/23/18 at 02:30 Magnesium Hydroxide (Milk Of Mag) 30 ml BID PRN PO CONSTIPATION; Start 05/23/18 at 02:30 Lactulose (Enulose) 20 gm DAILY PRN PO CONSTIPATION; Start 05/23/18 at 02:30 Lisinopril (Zestril) 10 mg DAILY PO ; Start 05/24/18 at 09:00 Lisinopril (Zestril) 5 mg ONCE ONCE PO ; Start 05/23/18 at 13:00; Stop 05/23/18 at 13:01 Thiamine HCl (Vitamin B1) 100 mg DAILY PO ; Start 05/24/18 at 09:00 Coded Allergies: cephalexin (Verified Allergy, Mild, 05/19/18) Past Surgical History None Past Surgical Hx: no surgical history Family History Significant Family History: no pertinent family hx Social History EtOH abuse. Former smoker. Smoking Status: Former smoker Exam/Review of Systems Vital Signs Vitals Vital Signs Date Temp Pulse Resp B/P (MAP) Pulse Ox O2 O2 Flow FiO2 Time Delivery Rate 05/23/18 98.3 91 18 184/84 96 Room Air 07:00 (117) 05/23/18 2.0 04:30 Intake and Output 05/22/18 05/22/18 05/23/18 1515:00 23:00 07:00 IntakeIntake Total 1300 ml OutputOutput Total 700 ml BalanceBalance 600 ml CE GEORGE NP May 23, 2018 13:01
[2018-05-23] MEDS: SENNA TAB PO SCH (20:45)
[2018-05-23] MEDS: AL HYDROX/MG HYDROX/SIMETH 30 ML CUP PO PRN (20:46)
[2018-05-24] MEDS: CHLORDIAZEPOXIDE 25 MG CAP PO PRN ×2 (00:08→06:00)
[2018-05-24 02:00] VITALS: BP 137/67; PULSE 90; RESP 16
[2018-05-24] MEDS: PANTOPRAZOLE (EC) 40 MG TAB PO SCH (06:00)
[2018-05-24 07:30] VITALS: BP 137/63; PULSE 99; RESP 20
--- NOTE | 2018-05-24 07:59 | PN ---
Date/Time of Note Date/Time of Note DATE: 05/24/18 TIME: 07:57 Subjective AWAKE ALERT DENIES SOB, PO GOOD Objective Vital Signs Date Temp Pulse Resp B/P (MAP) Pulse Ox O2 O2 Flow FiO2 Time Delivery Rate 05/24/18 98.0 90 16 137/67 95 Nasal 2.0 02:00 (90) Cannula Intake and Output 05/23/18 05/23/18 05/24/18 1515:00 23:00 07:00 IntakeIntake Total 2200 ml 450 ml OutputOutput Total 550 ml 600 ml 900 ml BalanceBalance -550 ml 1600 ml -450 ml Exam LUNGS CTA COR RRR MOTOR FAIR/GOOD CLOF XT AND GAIT MOD A FWW Results/Medications Result Diagram: 05/23/1870005/23/18700 Medications Current Medications Al Hydrox/Mg Hydrox/Simethicone (Mag-Al Plus) 30 ml Q6H PRN PO GASTROINTESTINAL UPSET Last administered on 05/23/18at 20:46; Admin Dose 30 ML; Start 05/22/18 at 23:30 Chlordiazepoxide (Librium) 25 mg Q4H PRN PO ANXIETY Last administered on 05/24/18at 06:00; Admin Dose 25 MG; Start 05/22/18 at 23:30 Folic Acid (Folic Acid) 1 mg DAILY PO Last administered on 05/23/18at 10:03; Admin Dose 1 MG; Start 05/23/18 at 09:00 Pantoprazole (Protonix Tab) 40 mg DAILY@06 PO Last administered on 05/24/18at 06:00; Admin Dose 40 MG; Start 05/23/18 at 06:00 IV Flush (NS 3 ml) 3 ml PER PROTOCOL IV ; Start 05/22/18 at 23:45 Docusate Sodium (Colace) 100 mg BID PO Last administered on 05/23/18at 20:45; Admin Dose 100 MG; Start 05/23/18 at 09:00 Senna (Senokot) 1 tab HS PO Last administered on 05/23/18at 20:45; Admin Dose 1 TAB; Start 05/23/18 at 21:00 Acetaminophen (Tylenol Tab) 650 mg Q4H PRN PO MILD PAIN(1-3)OR ELEVATED TEMP; Start 05/23/18 at 02:30 Bisacodyl (Dulcolax Supp) 10 mg DAILY PRN [place] CONSTIPATION; Start 05/23/18 at 02:30 Magnesium Hydroxide (Milk Of Mag) 30 ml BID PRN PO CONSTIPATION; Start 05/23/18 at 02:30 Lactulose (Enulose) 20 gm DAILY PRN PO CONSTIPATION; Start 05/23/18 at 02:30 Lisinopril (Zestril) 10 mg DAILY PO ; Start 05/24/18 at 09:00 Thiamine HCl (Vitamin B1) 100 mg DAILY PO ; Start 05/24/18 at 09:00 Assessment/Plan Additional Assessment/Plan 1. ALCOHOL RELATED POLY NEUROPATHY- CONT OOB INTERVENTIONS 1.5 Status post ETOH withdrawal. 2. Hypertension.MAINTAIN sbp <150 3. Impairments in self-care and mobility. 4. PULMONARY WEAN OFF O2 5. H/O GBS MARCIE ROBLES MD May 24, 2018 07:59
[2018-05-24] MEDS ORDERED: LISINOPRIL 10 MG TAB PO SCH (09:00)
[2018-05-24] MEDS: THIAMINE 100 MG TAB PO SCH (09:52)
[2018-05-24] MEDS: FOLIC ACID 1 MG TAB PO SCH (09:52)
[2018-05-24] MEDS: DOCUSATE SODIUM 100 MG CAP PO SCH ×2 (09:53→21:32)
--- NOTE | 2018-05-24 11:27 | PN ---
Date/Time of Note Date/Time of Note DATE: 05/24/18 TIME: 11:25 Assessment/Plan VTE Prophylaxis Risk score (from Ns)>0 risk: 3 SCD applied (from Ns): No SCD contraindicated: other Pharmacological prophylaxis: NA/contraindicated Pharm contraindication: low risk/ambulating Lines/Catheters [email or web address] Saline Lock Urinary Cath still in place: No Assessment/Plan Hospital Course SUBJECTIVE: Lying in bed, no acute distress. Patient received a dose of hydralazine yesterday as systolic blood pressure was 173. OBJECTIVE: Vital signs-see below PHYSICAL EXAM: Constitutional: obese male, lying in bed comfortably. Psych: nl mood/affect, no complaints Head: atraumatic, normocephalic Eyes: nl conjunctiva, nl sclera ENMT: mucosa pink and moist, nl external ears & nose Neck: non-tender, supple Respiratory: clear to auscultation, normal air movement Cardiovascular: nl pulses, regular rate and rhythm Gastrointestinal: non-tender, soft, bowel sounds active in all 4 quadrants. Musculoskeletal/extremities: nl extremities to inspection, motor strength equal bilaterally, no focal deficit. Normal pulses,no cyanosis, no edema. Neurological: Alert oriented 3,nl speech, nl strength Skin: nl turgor ASSESSMENT/PLAN: 72-year-old male with EtOH abuse, GBS,, hypertension, transferred to acute rehabilitation unit after patient was treated for EtOH intoxication at [facility]. 1. Polyneuropathy/GBS -Continue rehab 2. EtOH abuse, status post intoxication -Currently stable. No DTs. Discontinue Librium. -Alcohol cessation advised -Continue thiamine/folic acid 3. Hypertension -Required 1 dose of hydralazine last night. At this time, I recommended increasing lisinopril to 20 mg. Will consider addition of a second agent if blood pressure does not get optimized. 4. 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 -Able H&H. Continue to monitor. 5. Obesity with a BMI 36.7. -A1c/lipid panel stable -Weight reduction advised DVT prophylaxis: SCDs/ambulation. Patient was seen in collaboration with . Result Diagram: 05/23/18 0701 05/23/18 0701 Exam/Review of Systems Exam Vitals Vital Signs Date Temp Pulse Resp B/P (MAP) Pulse Ox O2 O2 Flow FiO2 Time Delivery Rate 05/24/18 98.5 99 20 137/63 96 Room Air 07:30 (87) 05/24/18 2.0 02:00 Intake and Output 05/23/18 05/23/18 05/24/18 1515:00 23:00 07:00 IntakeIntake Total 2200 ml 450 ml OutputOutput Total 550 ml 600 ml 900 ml BalanceBalance -550 ml 1600 ml -450 ml Medications Medication Current Medications Al Hydrox/Mg Hydrox/Simethicone (Mag-Al Plus) 30 ml Q6H PRN PO GASTROINTESTINAL UPSET Last administered on 05/23/18 20:46; Admin Dose 30 ML; Start 05/22/18 at 23:30 Folic Acid (Folic Acid) 1 mg DAILY PO Last administered on 05/24/18 09:52; Admin Dose 1 MG; Start 05/23/18 at 09:00 Pantoprazole (Protonix Tab) 40 mg DAILY@06 PO Last administered on 05/24/18 06:00; Admin Dose 40 MG; Start 05/23/18 at 06:00 IV Flush (NS 3 ml) 3 ml PER PROTOCOL IV ; Start 05/22/18 at 23:45 Docusate Sodium (Colace) 100 mg BID PO Last administered on 05/24/18 09:53; Admin Dose 100 MG; Start 05/23/18 at 09:00 Senna (Senokot) 1 tab HS PO Last administered on 05/23/18at 20:45; Admin Dose 1 TAB; Start 05/23/18 at 21:00 Acetaminophen (Tylenol Tab) 650 mg Q4H PRN PO MILD PAIN(1-3)OR ELEVATED TEMP; Start 05/23/18 at 02:30 Bisacodyl (Dulcolax Supp) 10 mg DAILY PRN [place] CONSTIPATION; Start 05/23/18 at 02:30 Magnesium Hydroxide (Milk Of Mag) 30 ml BID PRN PO CONSTIPATION; Start 05/23/18 at 02:30 Lactulose (Enulose) 20 gm DAILY PRN PO CONSTIPATION; Start 05/23/18 at 02:30 Lisinopril (Zestril) 10 mg DAILY PO Last administered on 05/24/18at 09:52; Admin Dose 10 MG; Start 05/24/18 at 09:00 Thiamine HCl (Vitamin B1) 100 mg DAILY PO Last administered on 05/24/18at 09:52; Admin Dose 100 MG; Start 05/24/18 at 09:00 CE GEORGE NP May 24, 2018 11:27
[2018-05-24] MEDS ORDERED: LISINOPRIL 10 MG TAB PO ONE (11:30)
[2018-05-24] MEDS ORDERED: ALPRAZOLAM 0.5 MG TAB PO PRN (11:30)
[2018-05-24 14:00] VITALS: BP 145/66; PULSE 95; RESP 18
[2018-05-24 19:28] VITALS: BP 142/70; PULSE 97; RESP 18
[2018-05-24] MEDS: SENNA TAB PO SCH (21:00)
[2018-05-24] MEDS: ALPRAZOLAM 0.25 MG TAB PO PRN (21:31)
[2018-05-25 02:00] VITALS: BP 138/65; PULSE 96; RESP 18
[2018-05-25] MEDS: PANTOPRAZOLE (EC) 40 MG TAB PO SCH (06:48)
[2018-05-25 07:00] VITALS: BP 138/84; PULSE 94; RESP 18
--- NOTE | 2018-05-25 07:00 | PN ---
Date/Time of Note Date/Time of Note DATE: 05/25/18 TIME: 06:58 Subjective AWALKE ALERT, NO C/O Objective Vital Signs Date Temp Pulse Resp B/P (MAP) Pulse Ox O2 O2 Flow FiO2 Time Delivery Rate 05/25/18 98.5 96 18 138/65 94 Room Air 02:00 (89) 05/24/18 2.0 20:00 Intake and Output 05/24/18 05/24/18 05/25/18 1515:00 23:00 07:00 IntakeIntake Total 200 ml 980 ml OutputOutput Total 1000 ml BalanceBalance 200 ml -20 ml Exam LUNGS CTA COR RR MOTOR FAIR CLOF XT AND GAIT MOD A FWW Results/Medications Result Diagram: 05/23/18 0701 05/23/18 0701 Medications Current Medications Al Hydrox/Mg Hydrox/Simethicone (Mag-Al Plus) 30 ml Q6H PRN PO GASTROINTESTINAL UPSET Last administered on 05/23/18at 20:46; Admin Dose 30 ML; Start 05/22/18 at 23:30 Folic Acid (Folic Acid) 1 mg DAILY PO Last administered on 05/24/18at 09:52; Admin Dose 1 MG; Start 05/23/18 at 09:00 Pantoprazole (Protonix Tab) 40 mg DAILY@06 PO Last administered on 05/25/18at 06:48; Admin Dose 40 MG; Start 05/23/18 at 06:00 IV Flush (NS 3 ml) 3 ml PER PROTOCOL IV ; Start 05/22/18 at 23:45 Docusate Sodium (Colace) 100 mg BID PO Last administered on 05/24/18at 21:32; Admin Dose 100 MG; Start 05/23/18 at 09:00 Senna (Senokot) 1 tab HS PO Last administered on 05/23/18at 20:45; Admin Dose 1 TAB; Start 05/23/18 at 21:00 Acetaminophen (Tylenol Tab) 650 mg Q4H PRN PO MILD PAIN(1-3)OR ELEVATED TEMP; Start 05/23/18 at 02:30 Bisacodyl (Dulcolax Supp) 10 mg DAILY PRN [place] CONSTIPATION; Start 05/23/18 at 02:30 Magnesium Hydroxide (Milk Of Mag) 30 ml BID PRN PO CONSTIPATION; Start 05/23/18 at 02:30 Lactulose (Enulose) 20 gm DAILY PRN PO CONSTIPATION; Start 05/23/18 at 02:30 Thiamine HCl (Vitamin B1) 100 mg DAILY PO Last administered on 05/24/18at 09:52; Admin Dose 100 MG; Start 05/24/18 at 09:00 Lisinopril (Zestril) 20 mg DAILY PO ; Start 05/25/18 at 09:00 Alprazolam (Xanax) 0.5 mg QHS PRN PO ANXIETY/insomnia Last administered on 05/24/18at 21:31; Admin Dose 0.5 MG; Start 05/24/18 at 20:18 Assessment/Plan Additional Assessment/Plan 1. ALCOHOL RELATED POLY NEUROPATHY- CONT OOB INTERVENTIONS 1.5 Status post ETOH withdrawal. 2. Hypertension.MAINTAIN sbp <150 MEDS ADJUSTED PER IM 3. Impairments in self-care and mobility. 4. PULMONARY WEAN OFF O2 5. H/O GBS MARCIE ROBLES MD May 25, 2018 06:59
[2018-05-25] MEDS: DOCUSATE SODIUM 100 MG CAP PO SCH ×2 (09:00→21:00)
[2018-05-25] MEDS: FOLIC ACID 1 MG TAB PO SCH (09:20)
[2018-05-25] MEDS: THIAMINE 100 MG TAB PO SCH (09:20)
[2018-05-25] MEDS: LISINOPRIL 20 MG TAB PO SCH (09:22)
--- NOTE | 2018-05-25 12:45 | PN ---
Date/Time of Note Date/Time of Note DATE: 05/25/18 TIME: 12:44 Assessment/Plan VTE Prophylaxis Risk score (from Ns)>0 risk: 4 SCD applied (from Ns): No SCD contraindicated: other Pharmacological prophylaxis: NA/contraindicated Pharm contraindication: low risk/ambulating Lines/Catheters IV [facility]from [facility] Saline Lock Urinary Cath still in place: No Assessment/Plan Hospital Course SUBJECTIVE: Stable blood pressure. No need for any as needed blood pressure medicine overnight. No acute distress. OBJECTIVE: Vital signs-see below PHYSICAL EXAM: Constitutional: obese male, lying in bed comfortably. Psych: nl mood/affect, no complaints Head: atraumatic, normocephalic Eyes: nl conjunctiva, nl sclera ENMT: mucosa pink and moist, nl external ears & nose Neck: non-tender, supple Respiratory: clear to auscultation, normal air movement Cardiovascular: nl pulses, regular rate and rhythm Gastrointestinal: non-tender, soft, bowel sounds active in all 4 quadrants. Musculoskeletal/extremities: nl extremities to inspection, motor strength equal bilaterally, no focal deficit. Normal pulses,no cyanosis, no edema. Neurological: Alert oriented 3,nl speech, nl strength Skin: nl turgor ASSESSMENT/PLAN: 72-year-old male with EtOH abuse, GBS,, hypertension, transferred to acute rehabilitation unit after patient was treated for EtOH intoxication at [facility]. 1. Polyneuropathy/GBS -Continue rehab 2. EtOH abuse, status post intoxication -Currently stable. No DTs. Discontinue Librium. -Alcohol cessation advised -Continue thiamine/folic acid 3. Hypertension -Now stable. Continue lisinopril 20 mg daily. 4. 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 -stable H&H. Continue to monitor. 5. Obesity with a BMI 36.7. -A1c/lipid panel stable -Weight reduction advised DVT prophylaxis: SCDs/ambulation. Patient was seen in collaboration with . Result Diagram: 05/23/18 0705/23/18 07 Exam/Review of Systems Exam Vitals Vital Signs Date Temp Pulse Resp B/P (MAP) Pulse Ox O2 O2 Flow FiO2 Time Delivery Rate 05/25/18 Nasal 2.0 08:30 Cannula 05/25/18 98.5 94 18 138/84 96 07:00 (102) Intake and Output 05/24/18 05/24/18 05/25/18 1414:59 22:59 06:59 IntakeIntake Total 200 ml 980 ml 550 ml OutputOutput Total 1000 ml BalanceBalance 200 ml -20 ml 550 ml Medications Medication Current Medications Al Hydrox/Mg Hydrox/Simethicone (Mag-Al Plus) 30 ml Q6H PRN PO GASTROINTESTINAL UPSET Last administered on 05/23/18 20:46; Admin Dose 30 ML; Start 05/22/18 at 23:30 Folic Acid (Folic Acid) 1 mg DAILY PO Last administered on 05/25/18 09:20; Admin Dose 1 MG; Start 05/23/18 at 09:00 Pantoprazole (Protonix Tab) 40 mg DAILY@06 PO Last administered on 05/25/18 06:48; Admin Dose 40 MG; Start 05/23/18 at 06:00 IV Flush (NS 3 ml) 3 ml PER PROTOCOL IV ; Start 05/22/18 at 23:45 Docusate Sodium (Colace) 100 mg BID PO Last administered on 05/24/18at 21:32; Admin Dose 100 MG; Start 05/23/18 at 09:00 Senna (Senokot) 1 tab HS PO Last administered on 05/23/18 20:45; Admin Dose 1 TAB; Start 05/23/18 at 21:00 Acetaminophen (Tylenol Tab) 650 mg Q4H PRN PO MILD PAIN(1-3)OR ELEVATED TEMP; Start 05/23/18 at 02:30 Bisacodyl (Dulcolax Supp) 10 mg DAILY PRN [place] CONSTIPATION; Start 05/23/18 at 02:30 Magnesium Hydroxide (Milk Of Mag) 30 ml BID PRN PO CONSTIPATION; Start 05/23/18 at 02:30 Lactulose (Enulose) 20 gm DAILY PRN PO CONSTIPATION; Start 05/23/18 at 02:30 Thiamine HCl (Vitamin B1) 100 mg DAILY PO Last administered on 05/25/18 09:20; Admin Dose 100 MG; Start 05/24/18 at 09:00 Lisinopril (Zestril) 20 mg DAILY PO Last administered on 05/25/18 09:22; Admin Dose 20 MG; Start 05/25/18 at 09:00 Alprazolam (Xanax) 0.5 mg QHS PRN PO ANXIETY/insomnia Last administered on 05/24/18at 21:31; Admin Dose 0.5 MG; Start 05/24/18 at 20:18 CE GEORGE NP May 25, 2018 12:45
[2018-05-25 14:00] VITALS: BP 114/54; PULSE 92; RESP 18
[2018-05-25] MEDS: AL HYDROX/MG HYDROX/SIMETH 30 ML CUP PO PRN (15:37)
[2018-05-25 19:55] VITALS: BP 146/71; PULSE 95; RESP 18
[2018-05-25] MEDS: SENNA TAB PO SCH (21:00)
[2018-05-25] MEDS: ALPRAZOLAM 0.25 MG TAB PO PRN (21:01)
[2018-05-26 02:00] VITALS: BP 137/75; PULSE 92; RESP 18
[2018-05-26] MEDS: PANTOPRAZOLE (EC) 40 MG TAB PO SCH (06:54)
[2018-05-26 07:00] VITALS: BP 152/69; PULSE 90; RESP 16
[2018-05-26] MEDS: THIAMINE 100 MG TAB PO SCH (10:40)
[2018-05-26] MEDS: DOCUSATE SODIUM 100 MG CAP PO SCH ×2 (10:40→20:41)
[2018-05-26] MEDS: FOLIC ACID 1 MG TAB PO SCH (10:40)
[2018-05-26] MEDS: LISINOPRIL 20 MG TAB PO SCH (10:41)
--- NOTE | 2018-05-26 11:24 | PN ---
Date/Time of Note Date/Time of Note DATE: 05/26/18 TIME: 11:22 Assessment/Plan VTE Prophylaxis Risk score (from Ns)>0 risk: 4 SCD applied (from Ns): No SCD contraindicated: other Pharmacological prophylaxis: NA/contraindicated Pharm contraindication: low risk/ambulating Lines/Catheters IV C[facility] Type [facility]from [facility] Saline Lock Urinary Cath still in place: No Assessment/Plan Hospital Course SUBJECTIVE: Stable blood pressure. No need for any as needed blood pressure medicine overnight. No acute distress. OBJECTIVE: Vital signs-see below PHYSICAL EXAM: Constitutional: obese male, lying in bed comfortably. Psych: nl mood/affect, no complaints Head: atraumatic, normocephalic Eyes: nl conjunctiva, nl sclera ENMT: mucosa pink and moist, nl external ears & nose Neck: non-tender, supple Respiratory: clear to auscultation, normal air movement Cardiovascular: nl pulses, regular rate and rhythm Gastrointestinal: non-tender, soft, bowel sounds active in all 4 quadrants. Musculoskeletal/extremities: nl extremities to inspection, motor strength equal bilaterally, no focal deficit. Normal pulses,no cyanosis, no edema. Neurological: Alert oriented 3,nl speech, nl strength Skin: nl turgor ASSESSMENT/PLAN: 72-year-old male with EtOH abuse, GBS,, hypertension, transferred to acute rehabilitation unit after patient was treated for EtOH intoxication at [facility]. 1. Polyneuropathy/GBS -Continue rehab 2. EtOH abuse, status post intoxication -Currently stable. No DTs. Discontinue Librium. -Alcohol cessation advised -Continue thiamine/folic acid 3. Hypertension -Now stable. Continue lisinopril 20 mg daily. 4. 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 -stable H&H. Continue to monitor. 5. Obesity with a BMI 36.7. -A1c/lipid panel stable -Weight reduction advised DVT prophylaxis: SCDs/ambulation. Patient was seen in collaboration with . Result Diagram: 05/23/1870005/23/18700 Exam/Review of Systems Exam Vitals Vital Signs Date Temp Pulse Resp B/P (MAP) Pulse Ox O2 O2 Flow FiO2 Time Delivery Rate 05/26/18 97.6 90 16 152/69 97 Room Air 07:00 (96) 05/25/18 2.0 20:00 Intake and Output 05/25/18 05/25/18 05/26/18 1515:00 23:00 07:00 IntakeIntake Total 1100 ml 1150 ml OutputOutput Total 800 ml 800 ml BalanceBalance 300 ml 350 ml Medications Medication Current Medications Al Hydrox/Mg Hydrox/Simethicone (Mag-Al Plus) 30 ml Q6H PRN PO GASTROINTESTINAL UPSET Last administered on 05/25/18 15:37; Admin Dose 30 ML; Start 05/22/18 at 23:30 Folic Acid (Folic Acid) 1 mg DAILY PO Last administered on 05/26/18 10:40; Adm in Dose 1 MG; Start 05/23/18 at 09:00 Pantoprazole (Protonix Tab) 40 mg DAILY@06 PO Last administered on 05/26/18 06:54; Admin Dose 40 MG; Start 05/23/18 at 06:00 IV Flush (NS 3 ml) 3 ml PER PROTOCOL IV ; Start 05/22/18 at 23:45 Docusate Sodium (Colace) 100 mg BID PO Last administered on 05/26/18 10:40; Admin Dose 100 MG; Start 05/23/18 at 09:00 Senna (Senokot) 1 tab HS PO Last administered on 05/23/18 20:45; Admin Dose 1 TAB; Start 05/23/18 at 21:00 Acetaminophen (Tylenol Tab) 650 mg Q4H PRN PO MILD PAIN(1-3)OR ELEVATED TEMP Last administered on 05/25/18 21:01; Admin Dose 650 MG; Start 05/23/18 at 02:30 Bisacodyl (Dulcolax Supp) 10 mg DAILY PRN [place] CONSTIPATION; Start 05/23/18 at 02 :30 Magnesium Hydroxide (Milk Of Mag) 30 ml BID PRN PO CONSTIPATION; Start 05/23/18 at 02:30 Lactulose (Enulose) 20 gm DAILY PRN PO CONSTIPATION; Start 05/23/18 at 02:30 Thiamine HCl (Vitamin B1) 100 mg DAILY PO Last administered on 05/26/18 10:40; Admin Dose 100 MG; Start 05/24/18 at 09:00 Lisinopril (Zestril) 20 mg DAILY PO Last administered on 05/26/18 10:41; Admin Dose 20 MG; Start 05/25/18 at 09:00 Alprazolam (Xanax) 0.5 mg QHS PRN PO ANXIETY/insomnia Last administered on 05/25/18at 21:01; Admin Dose 0.5 MG; Start 05/24/18 at 20:18 CE GEORGE NP May 26, 2018 11:24
[2018-05-26 14:00] VITALS: BP 150/68; PULSE 91; RESP 18
[2018-05-26 20:00] VITALS: BP 164/74; PULSE 101; RESP 18
[2018-05-26] MEDS: SENNA TAB PO SCH (20:41)
[2018-05-26] MEDS: ALPRAZOLAM 0.25 MG TAB PO PRN (23:49)
[2018-05-27 02:00] VITALS: BP 129/60; PULSE 82; RESP 18
[2018-05-27] MEDS: PANTOPRAZOLE (EC) 40 MG TAB PO SCH (06:31)
[2018-05-27 07:30] VITALS: BP 147/70; PULSE 92; RESP 20
[2018-05-27] MEDS: DOCUSATE SODIUM 100 MG CAP PO SCH ×2 (09:17→21:00)
[2018-05-27] MEDS: THIAMINE 100 MG TAB PO SCH (09:17)
[2018-05-27] MEDS: FOLIC ACID 1 MG TAB PO SCH (09:17)
[2018-05-27] MEDS: LISINOPRIL 20 MG TAB PO SCH (09:17)
--- NOTE | 2018-05-27 11:39 | PN ---
Date/Time of Note Date/Time of Note DATE: 05/27/18 TIME: 11:38 Assessment/Plan VTE Prophylaxis Risk score (from Ns)>0 risk: 4 [place] [facility] [place] contraindicated: low risk/ambulating, other Pharmacological prophylaxis: NA/contraindicated Pharm contraindication: low risk/ambulating Lines/Catheters IV Catheter Type (from [facility]): Saline Lock Urinary Cath still in place: No Assessment/Plan Hospital Course SUBJECTIVE: No acute distress. OBJECTIVE: Vital signs-see below PHYSICAL EXAM: Constitutional: obese male, lying in bed comfortably. Psych: nl mood/affect, no complaints Head: atraumatic, normocephalic Eyes: nl conjunctiva, nl sclera ENMT: mucosa pink and moist, nl external ears & nose Neck: non-tender, supple Respiratory: clear to auscultation, normal air movement Cardiovascular: nl pulses, regular rate and rhythm Gastrointestinal: non-tender, soft, bowel sounds active in all 4 quadrants. Musculoskeletal/extremities: nl extremities to inspection, motor strength equal bilaterally, no focal deficit. Normal pulses,no cyanosis, no edema. Neurological: Alert oriented 3,nl speech, nl strength Skin: nl turgor ASSESSMENT/PLAN: 72-year-old male with EtOH abuse, GBS,, hypertension, transferred to acute rehabilitation unit after patient was treated for EtOH intoxication at [facility]. 1. Polyneuropathy/GBS -Continue rehab 2. EtOH abuse, status post intoxication -Currently stable. No DTs. Discontinue Librium. -Alcohol cessation advised -Continue thiamine/folic acid 3. Hypertension -controlled -cont.acei 4. 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 -stable H&H. Continue to monitor. 5. Obesity with a BMI 36.7. -A1c/lipid panel stable -Weight reduction advised DVT prophylaxis: SCDs/ambulation. Patient was seen in collaboration with . Result Diagram: 05/23/18 0701 05/23/18 0701 Exam/Review of Systems Exam Vitals Vital Signs Date Temp Pulse Resp B/P (MAP) Pulse Ox O2 O2 Flow FiO2 Time Delivery Rate 05/27/18 98.2 92 20 147/70 95 Nasal 07:30 (95) Cannula 05/26/18 2.0 21:00 Intake and Output 05/26/18 05/26/18 05/27/18 1515:00 23:00 07:00 IntakeIntake Total 2100 ml 100 ml OutputOutput Total 1840 ml 1300 ml BalanceBalance 260 ml -1200 ml Medications Medication Current Medications Al Hydrox/Mg Hydrox/Simethicone (Mag-Al Plus) 30 ml Q6H PRN PO GASTROINTESTINAL UPSET Last administered on 05/25/18 15:37; Admin Dose 30 ML; Start 05/22/18 at 23:30 Folic Acid (Folic Acid) 1 mg DAILY PO Last administered on 05/27/18 09:17; Admin Dose 1 MG; Start 05/23/18 at 09:00 Pantoprazole (Protonix Tab) 40 mg DAILY@06 PO Last administered on 05/27/18 06:31; Admin Dose 40 MG; Start 05/23/18 at 06:00 IV Flush (NS 3 ml) 3 ml PER PROTOCOL IV ; Start 05/22/18 at 23:45 Docusate Sodium (Colace) 100 mg BID PO Last administered on 05/27/18 09:17; Admin Dose 100 MG; Start 05/23/18 at 09:00 Senna (Senokot) 1 tab HS PO Last administered on 05/26/18 20:41; Admin Dose 1 TAB; Start 05/23/18 at 21:00 Acetaminophen (Tylenol Tab) 650 mg Q4H PRN PO MILD PAIN(1-3)OR ELEVATED TEMP Last administered on 05/25/18 21:01; Admin Dose 650 MG; Start 05/23/18 at 02:30 Bisacodyl (Dulcolax Supp) 10 mg DAILY PRN [place] CONSTIPATION; Start 05/23/18 at 02:30 Magnesium Hydroxide (Milk Of Mag) 30 ml BID PRN PO CONSTIPATION; Start 05/23/18 at 02:30 Lactulose (Enulose) 20 gm DAILY PRN PO CONSTIPATION; Start 05/23/18 at 02:30 Thiamine HCl (Vitamin B1) 100 mg DAILY PO Last administered on 05/27/18 09:17; Admin Dose 100 MG; Start 05/24/18 at 09:00 Lisinopril (Zestril) 20 mg DAILY PO Last administered on 05/27/18 09:17; Admin Dose 20 MG; Start 05/25/18 at 09:00 Alprazolam (Xanax) 0.5 mg QHS PRN PO ANXIETY/insomnia Last administered on 05/26/18at 23:49; Admin Dose 0.5 MG; Start 05/24/18 at 20:18 CE GEORGE NP May 27, 2018 11:38
--- NOTE | 2018-05-27 13:05 | PN ---
Date/Time of Note Date/Time of Note DATE: 05/27/18 TIME: 13:05 Objective Vital Signs Date Temp Pulse Resp B/P (MAP) Pulse Ox O2 O2 Flow FiO2 Time Delivery Rate 05/27/18 98.2 92 20 147/70 95 Nasal 07:30 (95) Cannula 05/26/18 2.0 21:00 Intake and Output 05/26/18 05/26/18 05/27/18 1515:00 23:00 07:00 IntakeIntake Total 2100 ml 100 ml OutputOutput Total 1840 ml 1300 ml BalanceBalance 260 ml -1200 ml Exam INTERDISCIPLINARY TEAM CONFERENCE Physical Exam: Pulm- cta Abd-soft BOWEL- Cont BLADDER-Cont SKIN- intact OT- DRESSING-min/mod BATHING-min/mod TOILETING-min PT- BED MOBILITY-cga TRANSFERS-cga AMBULATION-cga 150 feet A/P- Interdisciplinary team conference held today. Please see interdisciplinary sheet. Working toward d.c. on 06/04 with post discharge follow up of physical therapy, occupational therapy. Results/Medications Result Diagram: 05/23/1870005/23/18 07 Medications Current Medications Al Hydrox/Mg Hydrox/Simethicone (Mag-Al Plus) 30 ml Q6H PRN PO GASTROINTESTINAL UPSET Last administered on 05/25/18at 15:37; Admin Dose 30 ML; Start 05/22/18 at 23:30 Folic Acid (Folic Acid) 1 mg DAILY PO Last administered on 05/27/18at 09:17; Admin Dose 1 MG; Start 05/23/18 at 09:00 Pantoprazole (Protonix Tab) 40 mg DAILY@06 PO Last administered on 05/27/18at 06:31; Admin Dose 40 MG; Start 05/23/18 at 06:00 IV Flush (NS 3 ml) 3 ml PER PROTOCOL IV ; Start 05/22/18 at 23:45 Docusate Sodium (Colace) 100 mg BID PO Last administered on 05/27/18at 09:17; Admin Dose 100 MG; Start 05/23/18 at 09:00 Senna (Senokot) 1 tab HS PO Last administered on 05/26/18at 20:41; Admin Dose 1 TAB; Start 05/23/18 at 21:00 Acetaminophen (Tylenol Tab) 650 mg Q4H PRN PO MILD PAIN(1-3)OR ELEVATED TEMP Last administered on 05/25/18at 21:01; Admin Dose 650 MG; Start 05/23/18 at 02:30 Bisacodyl (Dulcolax Supp) 10 mg DAILY PRN [place] CONSTIPATION; Start 05/23/18 at 02:30 Magnesium Hydroxide (Milk Of Mag) 30 ml BID PRN PO CONSTIPATION; Start 05/23/18 at 02:30 Lactulose (Enulose) 20 gm DAILY PRN PO CONSTIPATION; Start 05/23/18 at 02:30 Thiamine HCl (Vitamin B1) 100 mg DAILY PO Last administered on 05/27/18 09:17; Admin Dose 100 MG; Start 05/24/18 at 09:00 Lisinopril (Zestril) 20 mg DAILY PO Last administered on 05/27/18at 09:17; Admin Dose 20 MG; Start 05/25/18 at 09:00 Alprazolam (Xanax) 0.5 mg QHS PRN PO ANXIETY/insomnia Last administered on 05/26/18at 23:49; Admin Dose 0.5 MG; Start 05/24/18 at 20:18 YULIANA ROBLES MD May 27, 2018 13:05
[2018-05-27 14:00] VITALS: BP 160/76; PULSE 92; RESP 18
[2018-05-27 20:00] VITALS: BP 141/64; PULSE 93; RESP 18
[2018-05-27] MEDS: SENNA TAB PO SCH (21:00)
[2018-05-27] MEDS: ALPRAZOLAM 0.25 MG TAB PO PRN (22:43)
[2018-05-28 02:24] VITALS: BP 153/82; PULSE 82; RESP 18
[2018-05-28] MEDS: PANTOPRAZOLE (EC) 40 MG TAB PO SCH (06:24)
[2018-05-28 07:00] VITALS: BP 174/78; PULSE 80; RESP 18
[2018-05-28] MEDS: DOCUSATE SODIUM 100 MG CAP PO SCH ×2 (09:00→21:00)
[2018-05-28] MEDS: FOLIC ACID 1 MG TAB PO SCH (09:28)
[2018-05-28] MEDS: THIAMINE 100 MG TAB PO SCH (09:28)
[2018-05-28] MEDS: LISINOPRIL 20 MG TAB PO SCH (09:29)
--- NOTE | 2018-05-28 12:32 | PN ---
Date/Time of Note Date/Time of Note DATE: 05/28/18 TIME: 12:32 Assessment/Plan VTE Prophylaxis Risk score (from Ns)>0 risk: 4 SCD applied (from [facility] [place] No SCD contraindicated: other Pharmacological prophylaxis: NA/contraindicated Pharm contraindication: low risk/ambulating Lines/Catheters IV Catheter Type (from [facility]): Saline Lock Urinary Cath still in place: No Assessment/Plan Hospital Course SUBJECTIVE: No acute distress. OBJECTIVE: Vital signs-see below PHYSICAL EXAM: Constitutional: obese male, lying in bed comfortably. Psych: nl mood/affect, no complaints Head: atraumatic, normocephalic Eyes: nl conjunctiva, nl sclera ENMT: mucosa pink and moist, nl external ears & nose Neck: non-tender, supple Respiratory: clear to auscultation, normal air movement Cardiovascular: nl pulses, regular rate and rhythm Gastrointestinal: non-tender, soft, bowel sounds active in all 4 quadrants. Musculoskeletal/extremities: nl extremities to inspection, motor strength equal bilaterally, no focal deficit. Normal pulses,no cyanosis, no edema. Neurological: Alert oriented 3,nl speech, nl strength Skin: nl turgor ASSESSMENT/PLAN: 72-year-old male with EtOH abuse, GBS,, hypertension, transferred to acute rehabilitation unit after patient was treated for EtOH intoxication at [facility]. 1. Polyneuropathy/GBS -Continue rehab 2. EtOH abuse, status post intoxication -Currently stable. No DTs. Discontinue Librium. -Alcohol cessation advised -Continue thiamine/folic acid 3. Hypertension -controlled -cont.acei 4. 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 -stable H&H. Continue to monitor. 5. Obesity with a BMI 36.7. -A1c/lipid panel stable -Weight reduction advised DVT prophylaxis: SCDs/ambulation. Patient was seen in collaboration with . Exam/Review of Systems Exam Vitals Vital Signs Date Temp Pulse Resp B/P (MAP) Pulse Ox O2 O2 Flow FiO2 Time Delivery Rate 05/28/18 Nasal 2.0 08:30 Cannula 05/28/18 97.7 80 18 174/78 96 07:00 (110) Intake and Output 05/27/18 05/27/18 05/28/18 1515:00 23:00 07:00 IntakeIntake Total 200 ml 1120 ml OutputOutput Total 1600 ml 450 ml BalanceBalance 200 ml -480 ml -450 ml Medications Medication Current Medications Al Hydrox/Mg Hydrox/Simethicone (Mag-Al Plus) 30 ml Q6H PRN PO GASTROINTESTINAL UPSET Last administered on 05/25/18 15:37; Admin Dose 30 ML; Start 05/22/18 at 23:30 Folic Acid (Folic Acid) 1 mg DAILY PO Last administered on 05/28/18 09:28; Admin Dose 1 MG; Start 05/23/18 at 09:00 Pantoprazole (Protonix Tab) 40 mg DAILY@06 PO Last administered on 05/28/18 06:24; Admin Dose 40 MG; Start 05/23/18 at 06:00 IV Flush (NS 3 ml) 3 ml PER PROTOCOL IV ; Start 05/22/18 at 23:45 Docusate Sodium (Colace) 100 mg BID PO Last administered on 05/27/18 09:17; Admin Dose 100 MG; Start 05/23/18 at 09:00 Senna (Senokot) 1 tab HS PO Last administered on 05/26/18 20:41; Admin Dose 1 TAB; Start 05/23/18 at 21:00 Acetaminophen (Tylenol Tab) 650 mg Q4H PRN PO MILD PAIN(1-3)OR ELEVATED TEMP Last administered on 05/25/18 21:01; Admin Dose 650 MG; Start 05/23/18 at 02:30 Bisacodyl (Dulcolax Supp) 10 mg DAILY PRN [place] CONSTIPATION; Start 05/23/18 at 02:30 Magnesium Hydroxide (Milk Of Mag) 30 ml BID PRN PO CONSTIPATION; Start 05/23/18 at 02:30 Lactulose (Enulose) 20 gm DAILY PRN PO CONSTIPATION; Start 05/23/18 at 02:30 Thiamine HCl (Vitamin B1) 100 mg DAILY PO Last administered on 05/28/18 09:28; Admin Dose 100 MG; Start 05/24/18 at 09:00 Lisinopril (Zestril) 20 mg DAILY PO Last administered on 05/28/18 09:29; Admin Dose 20 MG; Start 05/25/18 at 09:00 Alprazolam (Xanax) 0.5 mg QHS PRN PO ANXIETY/insomnia Last administered on 3/18/19at 22:43; Admin Dose 0.5 MG; Start 05/24/18 at 20:18 CE GEORGE NP May 28, 2018 12:32
--- NOTE | 2018-05-28 13:14 | PN ---
Date/Time of Note Date/Time of Note DATE: 05/28/18 TIME: 13:14 Subjective No new complaints Objective Vital Signs Date Temp Pulse Resp B/P (MAP) Pulse Ox O2 O2 Flow FiO2 Time Delivery Rate 05/28/18 Nasal 2.0 08:30 Cannula 05/28/18 97.7 80 18 174/78 96 07:00 (110) Intake and Output 05/27/18 05/27/18 05/28/18 1515:00 23:00 07:00 IntakeIntake Total 200 ml 1120 ml OutputOutput Total 1600 ml 450 ml BalanceBalance 200 ml -480 ml -450 ml Exam pulm-cta cga ambulation Results/Medications Medications Current Medications Al Hydrox/Mg Hydrox/Simethicone (Mag-Al Plus) 30 ml Q6H PRN PO GASTROINTESTINAL UPSET Last administered on 05/25/18at 15:37; Admin Dose 30 ML; Start 05/22/18 at 23:30 Folic Acid (Folic Acid) 1 mg DAILY PO Last administered on 05/28/18at 09:28; Admin Dose 1 MG; Start 05/23/18 at 09:00 Pantoprazole (Protonix Tab) 40 mg DAILY@06 PO Last administered on 05/28/18at 06:24; Admin Dose 40 MG; Start 05/23/18 at 06:00 IV Flush (NS 3 ml) 3 ml PER PROTOCOL IV ; Start 05/22/18 at 23:45 Docusate Sodium (Colace) 100 mg BID PO Last administered on 05/27/18at 09:17; Admin Dose 100 MG; Start 05/23/18 at 09:00 Senna (Senokot) 1 tab HS PO Last administered on 05/26/18at 20:41; Admin Dose 1 TAB; Start 05/23/18 at 21:00 Acetaminophen (Tylenol Tab) 650 mg Q4H PRN PO MILD PAIN(1-3)OR ELEVATED TEMP Last administered on 05/25/18at 21:01; Admin Dose 650 MG; Start 05/23/18 at 02:30 Bisacodyl (Dulcolax Supp) 10 mg DAILY PRN [place] CONSTIPATION; Start 05/23/18 at 02:30 Magnesium Hydroxide (Milk Of Mag) 30 ml BID PRN PO CONSTIPATION; Start 05/23/18 at 02:30 Lactulose (Enulose) 20 gm DAILY PRN PO CONSTIPATION; Start 05/23/18 at 02:30 Thiamine HCl (Vitamin B1) 100 mg DAILY PO Last administered on 05/28/18at 09:28; Admin Dose 100 MG; Start 05/24/18 at 09:00 Lisinopril (Zestril) 20 mg DAILY PO Last administered on 05/28/18at 09:29; Admin Dose 20 MG; Start 05/25/18 at 09:00 Alprazolam (Xanax) 0.5 mg QHS PRN PO ANXIETY/insomnia Last administered on at 22:43; Admin Dose 0.5 MG; Start 05/24/18 at 20:18 Assessment/Plan Additional Assessment/Plan Rehab- ETOH polyneuropathy and H.O. GBS Continue rehab program Hypertension.MAINTAIN sbp <150 YULIANA ROBLES MD May 28, 2018 13:14
[2018-05-28 14:00] VITALS: BP 127/63; PULSE 94; RESP 18
[2018-05-28] MEDS ORDERED: FUROSEMIDE 20 MG TAB PO ONE (15:30)
[2018-05-28 20:19] VITALS: BP 129/60; PULSE 94; RESP 18
[2018-05-28] MEDS: SENNA TAB PO SCH (21:00)
[2018-05-28] MEDS: ALPRAZOLAM 0.25 MG TAB PO PRN (21:08)
[2018-05-29] MEDS: AL HYDROX/MG HYDROX/SIMETH 30 ML CUP PO PRN (01:59)
[2018-05-29 02:00] VITALS: BP 137/68; PULSE 93; RESP 18
[2018-05-29] MEDS: PANTOPRAZOLE (EC) 40 MG TAB PO SCH (06:44)
[2018-05-29 07:00] VITALS: BP 172/79; PULSE 88; RESP 18
[2018-05-29] MEDS: DOCUSATE SODIUM 100 MG CAP PO SCH ×3 (09:00→21:00)
[2018-05-29 10:01] VITALS: BP 132/61; PULSE 82; RESP 18
[2018-05-29] MEDS: THIAMINE 100 MG TAB PO SCH (10:01)
[2018-05-29] MEDS: LISINOPRIL 20 MG TAB PO SCH (10:01)
[2018-05-29] MEDS: FOLIC ACID 1 MG TAB PO SCH (10:01)
--- NOTE | 2018-05-29 11:29 | PN ---
Date/Time of Note Date/Time of Note DATE: 05/29/18 TIME: 11:27 Assessment/Plan VTE Prophylaxis Risk score (from Nsg)>0 risk: 4 SCD applied (from Ns): No SCD contraindicated: other Pharmacological prophylaxis: NA/contraindicated Pharm contraindication: low risk/ambulating Lines/Catheters IV Catheter Type (from Nrs): Saline Lock Urinary Cath still in place: No Assessment/Plan Hospital Course SUBJECTIVE: Patient with bilateral lower extremity swelling. No pain reported. OBJECTIVE: Vital signs-see below PHYSICAL EXAM: Constitutional: obese male, lying in bed comfortably. Psych: nl mood/affect, no complaints Head: atraumatic, normocephalic Eyes: nl conjunctiva, nl sclera ENMT: mucosa pink and moist, nl external ears & nose Neck: non-tender, supple Respiratory: clear to auscultation, normal air movement Cardiovascular: nl pulses, regular rate and rhythm Gastrointestinal: non-tender, soft, bowel sounds active in all 4 quadrants. Musculoskeletal/extremities: +Edema bilateral LEs. nl extremities to inspection, motor strength equal bilaterally, no focal deficit. Normal pulses,no cyanosis Neurological: Alert oriented 3,nl speech, nl strength Skin: nl turgor ASSESSMENT/PLAN: 72-year-old male with EtOH abuse, GBS,, hypertension, transferred to acute rehabilitation unit after patient was treated for EtOH intoxication at [facility]. 1. Polyneuropathy/GBS -Continue rehab 2. EtOH abuse, status post intoxication -Currently stable. No DTs. Discontinue Librium. -Alcohol cessation advised -Continue thiamine/folic acid 3. Hypertension -controlled -cont.acei 4. 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 -stable H&H. Continue to monitor. 5. Obesity with a BMI 36.7. -A1c/lipid panel stable -Weight reduction advised 6. Bilateral lower extremity swelling. Rule out CHF -Patient with mildly elevated BNP. Pending echocardiogram report. Will give support diuretics and instructed to elevate on pillows. -ultrasound to rule out DVT. DVT prophylaxis: SCDs/ambulation. Patient was seen in collaboration with . Results 24hrs Laboratory Tests Test 05/28/18 16:26 B-Type Natriuretic Peptide 318 H Exam/Review of Systems Exam Vitals Vital Signs Date Temp Pulse Resp B/P (MAP) Pulse Ox O2 O2 Flow FiO2 Time Delivery Rate 05/29/18 82 18 132/61 93 Room Air 10:01 (84) 05/29/18 98.3 07:00 05/29/18 2.0 06:48 Intake and Output 05/28/18 05/28/18 05/29/18 1515:00 23:00 07:00 IntakeIntake Total 1400 ml 350 ml OutputOutput Total 800 ml 800 ml 250 ml BalanceBalance -800 ml 600 ml 100 ml Results Results 24hrs Laboratory Tests Test 05/28/18 16:26 B-Type Natriuretic Peptide 318 H Medications Medication Current Medications Al Hydrox/Mg Hydrox/Simethicone (Mag-Al Plus) 30 ml Q6H PRN PO GASTROINTESTINAL UPSET Last administered on 05/29/18at 01:59; Admin Dose 30 ML; Start 05/22/18 at 23:30 Folic Acid (Folic Acid) 1 mg DAILY PO Last administered on 05/29/18at 10:01; Admin Dose 1 MG; Start 05/23/18 at 09:00 Pantoprazole (Protonix Tab) 40 mg DAILY@06 PO Last administered on 05/29/18at 06:44; Admin Dose 40 MG; Start 05/23/18 at 06:00 IV Flush (NS 3 ml) 3 ml PER PROTOCOL IV ; Start 05/22/18 at 23:45 Docusate Sodium (Colace) 100 mg BID PO Last administered on 05/27/18at 09:17; Admin Dose 100 MG; Start 05/23/18 at 09:00 Senna (Senokot) 1 tab HS PO Last administered on 05/26/18at 20:41; Admin Dose 1 TAB; Start 05/23/18 at 21:00 Acetaminophen (Tylenol Tab) 650 mg Q4H PRN PO MILD PAIN(1-3)OR ELEVATED TEMP Last administered on 05/25/18at 21:01; Admin Dose 650 MG; Start 05/23/18 at 02:30 Bisacodyl (Dulcolax Supp) 10 mg DAILY PRN [place] CONSTIPATION; Start 05/23/18 at 02:30 Magnesium Hydroxide (Milk Of Mag) 30 ml BID PRN PO CONSTIPATION; Start 05/23/18 at 02:30 Lactulose (Enulose) 20 gm DAILY PRN PO CONSTIPATION; Start 05/23/18 at 02:30 Thiamine HCl (Vitamin B1) 100 mg DAILY PO Last administered on 05/29/18at 10:01; Admin Dose 100 MG; Start 05/24/18 at 09:00 Lisinopril (Zestril) 20 mg DAILY PO Last administered on 05/29/18at 10:01; Admin Dose 20 MG; Start 05/25/18 at 09:00 Alprazolam (Xanax) 0.5 mg QHS PRN PO ANXIETY/insomnia Last administered on 05/28/18at 21:08; Admin Dose 0.5 MG; Start 05/24/18 at 20:18 CE GEORGE NP May 29, 2018 11:28
[2018-05-29] MEDS ORDERED: FUROSEMIDE 40 MG INJ IV ONE (11:30)
[2018-05-29] MEDS ORDERED: FUROSEMIDE 20 MG INJ IV SCH (12:30)
[2018-05-29] MEDS ORDERED: FUROSEMIDE 20 MG TAB PO ONE (13:00)
--- NOTE | 2018-05-29 13:13 | PN ---
Date/Time of Note Date/Time of Note DATE: 05/29/18 TIME: 13:13 Subjective Doing well Objective Vital Signs Date Temp Pulse Resp B/P (MAP) Pulse Ox O2 O2 Flow FiO2 Time Delivery Rate 05/29/18 82 18 132/61 93 Room Air 10:01 (84) 05/29/18 98.3 07:00 05/29/18 2.0 06:48 Intake and Output 05/28/18 05/28/18 05/29/18 1515:00 23:00 07:00 IntakeIntake Total 1400 ml 350 ml OutputOutput Total 800 ml 800 ml 250 ml BalanceBalance -800 ml 600 ml 100 ml Exam pulm-cta abd-soft cga ambulation Results/Medications Results 24 hrs Laboratory Tests Test 05/28/18 16:26 B-Type Natriuretic Peptide 318 H Medications Current Medications Al Hydrox/Mg Hydrox/Simethicone (Mag-Al Plus) 30 ml Q6H PRN PO GASTROINTESTINAL UPSET Last administered on 05/29/18at 01:59; Admin Dose 30 ML; Start 05/22/18 at 23:30 Folic Acid (Folic Acid) 1 mg DAILY PO Last administered on 05/29/18at 10:01; Admin Dose 1 MG; Start 05/23/18 at 09:00 Pantoprazole (Protonix Tab) 40 mg DAILY@06 PO Last administered on 05/29/18at 06:44; Admin Dose 40 MG; Start 05/23/18 at 06:00 IV Flush (NS 3 ml) 3 ml PER PROTOCOL IV ; Start 05/22/18 at 23:45 Docusate Sodium (Colace) 100 mg BID PO Last administered on 05/27/18at 09:17; Admin Dose 100 MG; Start 05/23/18 at 09:00 Senna (Senokot) 1 tab HS PO Last administered on 05/26/18at 20:41; Admin Dose 1 TAB; Start 05/23/18 at 21:00 Acetaminophen (Tylenol Tab) 650 mg Q4H PRN PO MILD PAIN(1-3)OR ELEVATED TEMP Last administered on 05/25/18at 21:01; Admin Dose 650 MG; Start 05/23/18 at 02:30 Bisacodyl (Dulcolax Supp) 10 mg DAILY PRN [place] CONSTIPATION; Start 05/23/18 at 02:30 Magnesium Hydroxide (Milk Of Mag) 30 ml BID PRN PO CONSTIPATION; Start 05/23/18 at 02:30 Lactulose (Enulose) 20 gm DAILY PRN PO CONSTIPATION; Start 05/23/18 at 02:30 Thiamine HCl (Vitamin B1) 100 mg DAILY PO Last administered on 05/29/18at 10:01; Admin Dose 100 MG; Start 05/24/18 at 09:00 Lisinopril (Zestril) 20 mg DAILY PO Last administered on 05/29/18at 10:01; Admin Dose 20 MG; Start 05/25/18 at 09:00 Alprazolam (Xanax) 0.5 mg QHS PRN PO ANXIETY/insomnia Last administered on 05/28/18at 21:08; Admin Dose 0.5 MG; Start 05/24/18 at 20:18 Furosemide (Lasix) 20 mg DAILY PO ; Start 05/30/18 at 09:00 Assessment/Plan Additional Assessment/Plan Rehab- ETOH polyneuropathy and H.O. GBS Continue rehab treatment plan Hypertension. YULIANA ROBLES MD May 29, 2018 13:13
[2018-05-29 14:00] VITALS: BP 131/60; PULSE 85; RESP 18
--- NOTE | 2018-05-29 15:26 | RADRPT ---
Echocardiogram Report Patient Name: CHARISSE WHITEPatient ID: [id number] : 1945 (72y 9m)Study Date: 05/29/2018 9:05:03 AM Gender: MAccession #: [id number] Tech: [facility] Location: 4421- Ref.Physician: CE GEORGE Height(Cm): BSA: Weight(Kg): Quality: Technically Difficult StudyAccount #: Procedures: Echocardiographic Report: Transthoracic echocardiogram with complete 2D, M-Mode, and doppler examination. Indications: Evaluate Left Ventricular function. Measurements: 2D/M Mode Doppler Measurement Value Normal Range Measurement Value Normal Range LVIDd 2D 3.7 [ 4.2 - 5.8 ] cm AV Peak Joao 1.1 [ 100.0 - 170.0 ] cm/sec LVIDs 2D 2.5 [ 2.5 - 4.0 ] cm AV Peak PG 5.0 [ 2.0 - 9.0 ] mmHg LVPWd 2D 1.2 [ 0.6 - 1.0 ] cm LVOT Peak Joao 1.1 [ 70.0 - 110.0 ] cm/sec IVSd 2D 1.7 [ 0.6 - 1.0 ] cm LVOT Peak PG 5.0 [ 2.0 - 6.0 ] mmHg AoR Diam 2D 3.0 [ 2.6 - 3.4 ] cm MV E Peak Joao 0.7 [ 60.0 - 130.0 ] cm/sec EDV 2D 56.6 [ 62.0 - 150.0 ] ml MV A Peak Joao 1.2 [ 100.0 - 120.0 ] cm/sec ESV 2D 23.2 [ 21.0 - 61.0 ] ml MV E/A 0.6 [ 0.8 - 1.5 ] ratio EF 2D 59.0 [ 52.0 - 72.0 ] percent MV Decel Time 99 [ 104 - 258 ] msec LA Dimen 2D 3.5 [ 3.0 - 4.0 ] cm Lat E` Joao 0.1 [ 10.0 - 15.0 ] cm/sec Lateral E/E` 10.3 [ 1.0 - 2.0 ] ratio MV E/A 0.6 [ 0.8 - 1.5 ] ratio TR Peak Joao 2.1 [ 100.0 - 280.0 ] cm/sec TR Peak PG 17.0 mmHg RVSP 20.0 [ 10.0 - 36.0 ] mmHg Findings: Left Ventricle: Normal left ventricular systolic function. Normal left ventricular cavity size. Sigmoid septum. Ejection fraction is visually estimated at 60 %. Tissue Doppler/Mitral Doppler indices are consistent with impaired relaxation (Stage I diastolic dysfunction). Right Ventricle: Normal right ventricular size. Normal right ventricular systolic function. Left Atrium: The left atrium is normal in size. Right Atrium: The right atrium is normal in size. Mitral Valve: Mild mitral leaflet calcification. Mild mitral annular calcification. Trace mitral regurgitation. Aortic Valve: No hemodynamically significant aortic stenosis by doppler. Aortic cusps appear mildly calcified. Tricuspid Valve: Normal appearance of the tricuspid valve. Estimated peak PA systolic pressure 20 mmHg. There is trace tricuspid regurgitation. Pulmonic Valve: Pulmonic valve not well visualized. Pericardium: Normal pericardium with no significant pericardial effusion. Aorta: Normal aortic root. IVC: Normal size and normal respiratory collapse consistent with normal right atrial pressure. Conclusions: Normal left ventricular systolic function. Normal left ventricular cavity size. Sigmoid septum. Ejection fraction is visually estimated at 60 %. Tissue Doppler/Mitral Doppler indices are consistent with impaired relaxation (Stage I diastolic dysfunction). No hemodynamically significant aortic stenosis by doppler. Aortic cusps appear mildly calcified. Normal appearance of the tricuspid valve. Estimated peak PA systolic pressure 20 mmHg. There is trace tricuspid regurgitation. Electronically Signed By: Yury Louis 2018-05-29 15:25:05 PDT
--- NOTE | 2018-05-29 19:48 | CONS ---
DATE OF ADMISSION: 05/22/2018 DATE OF CONSULTATION: 05/29/2018 TYPE OF CONSULTATION: Psychological. REFERRING PHYSICIAN: Yuliana Maurer MD. CONSULTING PSYCHOLOGIST: Charisse Beck, PhD. HISTORY OF PRESENT ILLNESS: The patient is a 72-year-old male. The patient does have a history of prior Guillain-Kelly syndrome, which was diagnosed in 2004. The patient reports that he has not worked since he was diagnosed with Guillain-Kelly. He had also has a history of alcohol abuse. The patient reports that he has had a long history of abusing alcohol. The patient has sobered up and stayed sober for 1 or 2 years at different times. The patient does say that he drinks about a fifth per day. The patient does also admit to being depressed and is having difficulty coping. The patient was having overall problems with his mental status and medical problems, but he has been improving and was sent to the acute rehabilitation unit for acute multidisciplinary rehabilitation. FAMILY AND SOCIAL HISTORY: The patient lives in an apartment by himself in [place]. The patient does want to return there after discharge. MEDICATIONS: The patient is on Xanax 0.5 mg at bedtime p.r.n. SUBSTANCE USE: The patient does say that he abuses alcohol. The patient does drink approximately a fifth per day. The patient is talking about trying to quit. It was recommended to the patient that he seek a 12-step recovery program after discharge. The patient states that he used to smoke, but stopped 15 years ago. MENTAL STATUS EXAMINATION: APPEARANCE: The patient was seen sitting on the side of his bed. He was of average height and overweight. The patient is right-handed. BEHAVIOR: The patient was cooperative during the consultation. The patient did attempt to answer all questions presented to him by the interviewer. MOOD AND AFFECT: The patient's mood appeared to be somewhat depressed. Affect did appear to be slightly anxious. PERCEPTION: The patient reports no hallucinations or delusions. The patient was alert to person, place, situation and time. MEMORY AND COGNITION: The patient's memory and cognition appear to be intact. He had no difficulty recalling recent and remote events. The patient was able to state the name of the hospital. The patient was able to state the month and the year. The patient was able to say the President of [facility], the governor of the critical access hospital and the mayor of the [facility]. The patient did spell world backwards correctly. The patient was able to do 5 serial-7 subtractions from 100 without error. He actually did get the name of the hospital slightly on because he called it [facility]. Overall, the patient's cognitions appear to be intact. INTELLIGENCE: Intelligence would appear to fall in the average range. INSIGHT: Fair. JUDGMENT: Fair. THOUGHT CONTENT: The patient is concerned about his present medical condition. The patient does want to get better and return to his previous level of functioning. The patient knows he has a problem with alcohol and is working on trying to follow through with and to stop. DISCUSSION: The patient can likely benefit from some cognitive/behavioral psychotherapy. This psychotherapy would focus on his underlying level of depression as well as his alcohol abuse. DIAGNOSTIC IMPRESSION: 1. F06.31, mood disorder due to multiple medical problems with depressive features. 2. F10.20, alcohol dependence, uncomplicated. Thank you very much, Dr. Emmanuel Maurer, for referring this individual. Please do not hesitate to call if you have additional questions. Dictated By: CHARISSE BECK PHD RK/NTS Conf#: [id number] DID#: [id number] CC: YULIANA MAURER MD; TRISTAN ARAGON MD;*EndCC* MTDD
[2018-05-29 20:36] VITALS: BP 148/65; PULSE 87; RESP 18
[2018-05-29] MEDS: ALPRAZOLAM 0.25 MG TAB PO PRN (20:58)
[2018-05-29] MEDS: SENNA TAB PO SCH (21:00)
[2018-05-30 02:20] VITALS: BP 136/65; PULSE 82; RESP 18
[2018-05-30] MEDS: PANTOPRAZOLE (EC) 40 MG TAB PO SCH (06:38)
[2018-05-30 07:00] VITALS: BP 136/87; PULSE 96; RESP 18
[2018-05-30] MEDS: LISINOPRIL 20 MG TAB PO SCH (08:20)
[2018-05-30] MEDS: FUROSEMIDE 20 MG TAB PO SCH (08:20)
[2018-05-30] MEDS: THIAMINE 100 MG TAB PO SCH (08:20)
[2018-05-30] MEDS: FOLIC ACID 1 MG TAB PO SCH (08:20)
[2018-05-30] MEDS: DOCUSATE SODIUM 100 MG CAP PO SCH ×2 (08:20→20:10)
--- NOTE | 2018-05-30 12:32 | PN ---
Date/Time of Note Date/Time of Note DATE: 05/30/18 TIME: 12:30 Assessment/Plan VTE Prophylaxis Risk score (from Ns)>0 risk: 4 SCD applied (from Ns): No SCD contraindicated: other Pharmacological prophylaxis: NA/contraindicated Pharm contraindication: low risk/ambulating Lines/Catheters IV [facility]ter [facility]from [facility] Saline Lock Urinary Cath still in place: No Assessment/Plan Hospital Course SUBJECTIVE:with improved LE edema OBJECTIVE: Vital signs-see below PHYSICAL EXAM: Constitutional: obese male, lying in bed comfortably. Psych: nl mood/affect, no complaints Head: atraumatic, normocephalic Eyes: nl conjunctiva, nl sclera ENMT: mucosa pink and moist, nl external ears & nose Neck: non-tender, supple Respiratory: clear to auscultation, normal air movement Cardiovascular: nl pulses, regular rate and rhythm Gastrointestinal: non-tender, soft, bowel sounds active in all 4 quadrants. Musculoskeletal/extremities: +Edema bilateral LEs. nl extremities to inspection, motor strength equal bilaterally, no focal deficit. Normal pulses,no cyanosis Neurological: Alert oriented 3,nl speech, nl strength Skin: nl turgor ASSESSMENT/PLAN: 72-year-old male with EtOH abuse, GBS,, hypertension, transferred to acute rehabilitation unit after patient was treated for EtOH intoxication at [facility]. 1. Polyneuropathy/GBS -Continue rehab 2. EtOH abuse, status post intoxication -Currently stable. No DTs. Discontinue Librium. -Alcohol cessation advised -Continue thiamine/folic acid 3. Hypertension -controlled -cont.acei 4. 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 -stable H&H. Continue to monitor. 5. Obesity with a BMI 36.7. -A1c/lipid panel stable -Weight reduction advised 6. Chronic Bilateral lower extremity swelling,likely Lymphedema -no dvt.Echo stable. -cont.diuretics, elevate-rec DEMARCUS hose once swelling improves. DVT prophylaxis: SCDs/ambulation. Patient was seen in collaboration with . Exam/Review of Systems Exam Vitals Vital Signs Date Temp Pulse Resp B/P (MAP) Pulse Ox O2 O2 Flow FiO2 Time Delivery Rate 05/30/18 98.4 96 18 136/87 96 Room Air 07:00 (103) 05/29/18 2.0 20:00 Intake and Output 05/29/18 05/29/18 05/30/18 1515:00 23:00 07:00 IntakeIntake Total 2000 ml 500 ml OutputOutput Total 1200 ml 2350 ml 520 ml BalanceBalance -1200 ml -350 ml -20 ml Medications Medication Current Medications Al Hydrox/Mg Hydrox/Simethicone (Mag-Al Plus) 30 ml Q6H PRN PO GASTROINTESTINAL UPSET Last administered on 05/29/18 01:59; Admin Dose 30 ML; Start 05/22/18 at 23:30 Folic Acid (Folic Acid) 1 mg DAILY PO Last administered on 05/30/18 08:20; Admin Dose 1 MG; Start 05/23/18 at 09:00 Pantoprazole (Protonix Tab) 40 mg DAILY@06 PO Last administered on 05/30/18at 06:38; Admin Dose 40 MG; Start 05/23/18 at 06:00 IV Flush (NS 3 ml) 3 ml PER PROTOCOL IV ; Start 05/22/18 at 23:45 Docusate Sodium (Colace) 100 mg BID PO Last administered on 05/27/18at 09:17; Admin Dose 100 MG; Start 05/23/18 at 09:00 Senna (Senokot) 1 tab HS PO Last administered on 05/26/18at 20:41; Admin Dose 1 TAB; Start 05/23/18 at 21:00 Acetaminophen (Tylenol Tab) 650 mg Q4H PRN PO MILD PAIN(1-3)OR ELEVATED TEMP Last administered on 05/25/18at 21:01; Admin Dose 650 MG; Start 05/23/18 at 02:30 Bisacodyl (Dulcolax Supp) 10 mg DAILY PRN [place] CONSTIPATION; Start 05/23/18 at 02:30 Magnesium Hydroxide (Milk Of Mag) 30 ml BID PRN PO CONSTIPATION; Start 05/23/18 at 02:30 Lactulose (Enulose) 20 gm DAILY PRN PO CONSTIPATION; Start 05/23/18 at 02:30 Thiamine HCl (Vitamin B1) 100 mg DAILY PO Last administered on 05/30/18at 08:20; Admin Dose 100 MG; Start 05/24/18 at 09:00 Lisinopril (Zestril) 20 mg DAILY PO Last administered on 05/30/18at 08:20; Admin Dose 20 MG; Start 05/25/18 at 09:00 Alprazolam (Xanax) 0.5 mg QHS PRN PO ANXIETY/insomnia Last administered on 05/29/18at 20:58; Admin Dose 0.5 MG; Start 05/24/18 at 20:18 Furosemide (Lasix) 20 mg DAILY PO Last administered on 05/30/18at 08:20; Admin Dose 20 MG; Start 05/30/18 at 09:00 CE GEORGE NP May 30, 2018 12:32
--- NOTE | 2018-05-30 12:52 | PN ---
Date/Time of Note Date/Time of Note DATE: 05/30/18 TIME: 12:52 Subjective Comfortable Objective Vital Signs Date Temp Pulse Resp B/P (MAP) Pulse Ox O2 O2 Flow FiO2 Time Delivery Rate 05/30/18 98.4 96 18 136/87 96 Room Air 07:00 (103) 05/29/18 2.0 20:00 Intake and Output 05/29/18 05/29/18 05/30/18 1515:00 23:00 07:00 IntakeIntake Total 2000 ml 500 ml OutputOutput Total 1200 ml 2350 ml 520 ml BalanceBalance -1200 ml -350 ml -20 ml Exam pulm-cta bd-soft sba ambulation Results/Medications Medications Current Medications Al Hydrox/Mg Hydrox/Simethicone (Mag-Al Plus) 30 ml Q6H PRN PO GASTROINTESTINAL UPSET Last administered on 05/29/18at 01:59; Admin Dose 30 ML; Start 05/22/18 at 23:30 Folic Acid (Folic Acid) 1 mg DAILY PO Last administered on 05/30/18at 08:20; Admin Dose 1 MG; Start 05/23/18 at 09:00 Pantoprazole (Protonix Tab) 40 mg DAILY@06 PO Last administered on 05/30/18at 06:38; Admin Dose 40 MG; Start 05/23/18 at 06:00 IV Flush (NS 3 ml) 3 ml PER PROTOCOL IV ; Start 05/22/18 at 23:45 Docusate Sodium (Colace) 100 mg BID PO Last administered on 05/27/18at 09:17; Admin Dose 100 MG; Start 05/23/18 at 09:00 Senna (Senokot) 1 tab HS PO Last administered on 05/26/18at 20:41; Admin Dose 1 TAB; Start 05/23/18 at 21:00 Acetaminophen (Tylenol Tab) 650 mg Q4H PRN PO MILD PAIN(1-3)OR ELEVATED TEMP Last administered on 05/25/18at 21:01; Admin Dose 650 MG; Start 05/23/18 at 02:30 Bisacodyl (Dulcolax Supp) 10 mg DAILY PRN [place] CONSTIPATION; Start 05/23/18 at 02:30 Magnesium Hydroxide (Milk Of Mag) 30 ml BID PRN PO CONSTIPATION; Start 05/23/18 at 02:30 Lactulose (Enulose) 20 gm DAILY PRN PO CONSTIPATION; Start 05/23/18 at 02:30 Thiamine HCl (Vitamin B1) 100 mg DAILY PO Last administered on 05/30/18at 08:20; Admin Dose 100 MG; Start 05/24/18 at 09:00 Lisinopril (Zestril) 20 mg DAILY PO Last administered on 05/30/18 08:20; Admin Dose 20 MG; Start 05/25/18 at 09:00 Alprazolam (Xanax) 0.5 mg QHS PRN PO ANXIETY/insomnia Last administered on 05/29/18at 20:58; Admin Dose 0.5 MG; Start 05/24/18 at 20:18 Furosemide (Lasix) 20 mg DAILY PO Last administered on 05/30/18at 08:20; Admin Dose 20 MG; Start 05/30/18 at 09:00 Assessment/Plan Additional Assessment/Plan Rehab- ETOH polyneuropathy and H.O. GBS Continue rehab activities Hypertension. YULIANA ROBLES MD May 30, 2018 12:52
--- NOTE | 2018-05-30 12:53 | PN ---
Date/Time of Note Date/Time of Note DATE: 05/30/18 TIME: 12:53 Subjective Doesn't like bed alarm Objective Vital Signs Date Temp Pulse Resp B/P (MAP) Pulse Ox O2 O2 Flow FiO2 Time Delivery Rate 05/30/18 98.4 96 18 136/87 96 Room Air 07:00 (103) 05/29/18 2.0 20:00 Intake and Output 05/29/18 05/29/18 05/30/18 1515:00 23:00 07:00 IntakeIntake Total 2000 ml 500 ml OutputOutput Total 1200 ml 2350 ml 520 ml BalanceBalance -1200 ml -350 ml -20 ml Exam pulm-cta sba ambulation Results/Medications Medications Current Medications Al Hydrox/Mg Hydrox/Simethicone (Mag-Al Plus) 30 ml Q6H PRN PO GASTROINTESTINAL UPSET Last administered on 05/29/18at 01:59; Admin Dose 30 ML; Start 05/22/18 at 23:30 Folic Acid (Folic Acid) 1 mg DAILY PO Last administered on 05/30/18at 08:20; Admin Dose 1 MG; Start 05/23/18 at 09:00 Pantoprazole (Protonix Tab) 40 mg DAILY@06 PO Last administered on 05/30/18at 06:38; Admin Dose 40 MG; Start 05/23/18 at 06:00 IV Flush (NS 3 ml) 3 ml PER PROTOCOL IV ; Start 05/22/18 at 23:45 Docusate Sodium (Colace) 100 mg BID PO Last administered on 05/27/18at 09:17; Admin Dose 100 MG; Start 05/23/18 at 09:00 Senna (Senokot) 1 tab HS PO Last administered on 05/26/18at 20:41; Admin Dose 1 TAB; Start 05/23/18 at 21:00 Acetaminophen (Tylenol Tab) 650 mg Q4H PRN PO MILD PAIN(1-3)OR ELEVATED TEMP Last administered on 05/25/18at 21:01; Admin Dose 650 MG; Start 05/23/18 at 02:30 Bisacodyl (Dulcolax Supp) 10 mg DAILY PRN [place] CONSTIPATION; Start 05/23/18 at 02:30 Magnesium Hydroxide (Milk Of Mag) 30 ml BID PRN PO CONSTIPATION; Start 05/23/18 at 02:30 Lactulose (Enulose) 20 gm DAILY PRN PO CONSTIPATION; Start 05/23/18 at 02:30 Thiamine HCl (Vitamin B1) 100 mg DAILY PO Last administered on 05/30/18at 08:20; Admin Dose 100 MG; Start 05/24/18 at 09:00 Lisinopril (Zestril) 20 mg DAILY PO Last administered on 05/30/18at 08:20; Admin Dose 20 MG; Start 05/25/18 at 09:00 Alprazolam (Xanax) 0.5 mg QHS PRN PO ANXIETY/insomnia Last administered on 05/29/18at 20:58; Admin Dose 0.5 MG; Start 05/24/18 at 20:18 Furosemide (Lasix) 20 mg DAILY PO Last administered on 05/30/18at 08:20; Admin Dose 20 MG; Start 05/30/18 at 09:00 Assessment/Plan Additional Assessment/Plan Rehab- ETOH polyneuropathy and H.O. GBS Continue rehab and dc planning Hypertension. YULIANA ROBLES MD May 30, 2018 12:53
[2018-05-30 14:00] VITALS: BP 127/63; PULSE 96; RESP 18
[2018-05-30 19:47] VITALS: BP_SYST 128; BP_DIAS 6; BP_DIAS 68; PULSE 85; RESP 18
[2018-05-30] MEDS: SENNA TAB PO SCH (20:10)
[2018-05-30] MEDS: ALPRAZOLAM 0.25 MG TAB PO PRN (23:26)
[2018-05-31 02:00] VITALS: BP 132/88; PULSE 90; RESP 18
[2018-05-31] MEDS: PANTOPRAZOLE (EC) 40 MG TAB PO SCH (06:11)
[2018-05-31 07:30] VITALS: BP_SYST 123; BP_SYST 194; BP_DIAS 56; BP_DIAS 93; PULSE 84; RESP 20
[2018-05-31] MEDS: FUROSEMIDE 20 MG TAB PO SCH (09:57)
[2018-05-31] MEDS: DOCUSATE SODIUM 100 MG CAP PO SCH ×2 (09:57→21:00)
[2018-05-31] MEDS: FOLIC ACID 1 MG TAB PO SCH (09:57)
[2018-05-31] MEDS: LISINOPRIL 20 MG TAB PO SCH (09:57)
[2018-05-31] MEDS: THIAMINE 100 MG TAB PO SCH (09:57)
--- NOTE | 2018-05-31 11:56 | PN ---
Date/Time of Note Date/Time of Note DATE: 05/31/18 TIME: 11:55 Subjective Up for activities. Doesn't like bed alarm Objective Vital Signs Date Temp Pulse Resp B/P (MAP) Pulse Ox O2 O2 Flow FiO2 Time Delivery Rate 05/31/18 98.4 84 20 123/56 96 Room Air 07:30 (78) 05/31/18 2.0 06:04 Intake and Output 05/30/18 05/30/18 05/31/18 1515:00 23:00 07:00 IntakeIntake Total 300 ml 1600 ml 850 ml OutputOutput Total 500 ml 1200 ml BalanceBalance -200 ml 400 ml 850 ml Exam sba transfer sba ambulation Results/Medications Medications Current Medications Al Hydrox/Mg Hydrox/Simethicone (Mag-Al Plus) 30 ml Q6H PRN PO GASTROINTESTINAL UPSET Last administered on 05/29/18at 01:59; Admin Dose 30 ML; Start 05/22/18 at 23:30 Folic Acid (Folic Acid) 1 mg DAILY PO Last administered on 05/31/18at 09:57; Admin Dose 1 MG; Start 05/23/18 at 09:00 Pantoprazole (Protonix Tab) 40 mg DAILY@06 PO Last administered on 05/31/18at 06:11; Admin Dose 40 MG; Start 05/23/18 at 06:00 IV Flush (NS 3 ml) 3 ml PER PROTOCOL IV ; Start 05/22/18 at 23:45 Docusate Sodium (Colace) 100 mg BID PO Last administered on 05/31/18at 09:57; Admin Dose 100 MG; Start 05/23/18 at 09:00 Senna (Senokot) 1 tab HS PO Last administered on 05/26/18at 20:41; Admin Dose 1 TAB; Start 05/23/18 at 21:00 Acetaminophen (Tylenol Tab) 650 mg Q4H PRN PO MILD PAIN(1-3)OR ELEVATED TEMP Last administered on 05/25/18at 21:01; Admin Dose 650 MG; Start 05/23/18 at 02:30 Bisacodyl (Dulcolax Supp) 10 mg DAILY PRN [place] CONSTIPATION; Start 05/23/18 at 02:30 Magnesium Hydroxide (Milk Of Mag) 30 ml BID PRN PO CONSTIPATION; Start 05/23/18 at 02:30 Lactulose (Enulose) 20 gm DAILY PRN PO CONSTIPATION; Start 05/23/18 at 02:30 Thiamine HCl (Vitamin B1) 100 mg DAILY PO Last administered on 05/31/18 09:57; Admin Dose 100 MG; Start 05/24/18 at 09:00 Lisinopril (Zestril) 20 mg DAILY PO Last administered on 05/31/18 09:57; Admin Dose 20 MG; Start 05/25/18 at 09:00 Alprazolam (Xanax) 0.5 mg QHS PRN PO ANXIETY/insomnia Last administered on 05/30/18at 23:26; Admin Dose 0.5 MG; Start 05/24/18 at 20:18 Furosemide (Lasix) 20 mg DAILY PO Last administered on 05/31/18 09:57; Admin Dose 20 MG; Start 05/30/18 at 09:00 Assessment/Plan Additional Assessment/Plan Rehab- ETOH polyneuropathy and H.O. GBS Continue rehab, dc tomorrow Hypertension. YULIANA ROBLES MD May 31, 2018 11:56
--- NOTE | 2018-05-31 12:58 | PN ---
Date/Time of Note Date/Time of Note DATE: 05/31/18 TIME: 12:57 Assessment/Plan VTE Prophylaxis Risk score (from Ns)>0 risk: 4 SCD applied (from Ns): No SCD contraindicated: other Pharmacological prophylaxis: NA/contraindicated Pharm contraindication: low risk/ambulating Lines/Catheters IV Catheter Type (from [facility]): Saline Lock Urinary Cath still in place: No Assessment/Plan Hospital Course SUBJECTIVE: No acute distress. OBJECTIVE: Vital signs-see below PHYSICAL EXAM: Constitutional: obese male, lying in bed comfortably. Psych: nl mood/affect, no complaints Head: atraumatic, normocephalic Eyes: nl conjunctiva, nl sclera ENMT: mucosa pink and moist, nl external ears & nose Neck: non-tender, supple Respiratory: clear to auscultation, normal air movement Cardiovascular: nl pulses, regular rate and rhythm Gastrointestinal: non-tender, soft, bowel sounds active in all 4 quadrants. Musculoskeletal/extremities: +Edema bilateral LEs. nl extremities to inspection, motor strength equal bilaterally, no focal deficit. Normal pulses,no cyanosis Neurological: Alert oriented 3,nl speech, nl strength Skin: nl turgor ASSESSMENT/PLAN: 72-year-old male with EtOH abuse, GBS,, hypertension, transferred to acute rehabilitation unit after patient was treated for EtOH intoxication at [facility]. 1. Polyneuropathy/GBS -Continue rehab 2. EtOH abuse, status post intoxication -Currently stable. No DTs. Discontinue Librium. -Alcohol cessation advised -Continue thiamine/folic acid 3. Hypertension -controlled -cont.acei 4. 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 -stable H&H. Continue to monitor. 5. Obesity with a BMI 36.7. -A1c/lipid panel stable -Weight reduction advised 6. Chronic Bilateral lower extremity swelling,likely Lymphedema -no dvt.Echo stable. -cont.diuretics, elevate-rec DEMARCUS hose once swelling improves further. DVT prophylaxis: SCDs/ambulation. Agree with discharge planning in a.m. Patient was seen in collaboration with . Exam/Review of Systems Exam Vitals Vital Signs Date Temp Pulse Resp B/P (MAP) Pulse Ox O2 O2 Flow FiO2 Time Delivery Rate 05/31/18 98.4 84 20 123/56 96 Room Air 07:30 (78) 05/31/18 2.0 06:04 Intake and Output 05/30/18 05/30/18 05/31/18 1414:59 22:59 06:59 IntakeIntake Total 300 ml 1600 ml 850 ml OutputOutput Total 500 ml 1200 ml BalanceBalance -200 ml 400 ml 850 ml Medications Medication Current Medications Al Hydrox/Mg Hydrox/Simethicone (Mag-Al Plus) 30 ml Q6H PRN PO GASTROINTESTINAL UPSET Last administered on 05/29/18 01:59; Admin Dose 30 ML; Start 05/22/18 at 23:30 Folic Acid (Folic Acid) 1 mg DAILY PO Last administered on 05/31/18 09:57; Admin Dose 1 MG; Start 05/23/18 at 09:00 Pantoprazole (Protonix Tab) 40 mg DAILY@06 PO Last administered on 05/31/18 06:11; Admin Dose 40 MG; Start 05/23/18 at 06:00 IV Flush (NS 3 ml) 3 ml PER PROTOCOL IV ; Start 05/22/18 at 23:45 Docusate Sodium (Colace) 100 mg BID PO Last administered on 05/31/18 09:57; Admin Dose 100 MG; Start 05/23/18 at 09:00 Senna (Senokot) 1 tab HS PO Last administered on 05/26/18 20:41; Admin Dose 1 TAB; Start 05/23/18 at 21:00 Acetaminophen (Tylenol Tab) 650 mg Q4H PRN PO MILD PAIN(1-3)OR ELEVATED TEMP Last administered on 05/25/18 21:01; Admin Dose 650 MG; Start 05/23/18 at 02:30 Bisacodyl (Dulcolax Supp) 10 mg DAILY PRN [place] CONSTIPATION; Start 05/23/18 at 02:30 Magnesium Hydroxide (Milk Of Mag) 30 ml BID PRN PO CONSTIPATION; Start 05/23/18 at 02:30 Lactulose (Enulose) 20 gm DAILY PRN PO CONSTIPATION; Start 05/23/18 at 02:30 Thiamine HCl (Vitamin B1) 100 mg DAILY PO Last administered on 05/31/18 09:57; Admin Dose 100 MG; Start 05/24/18 at 09:00 Lisinopril (Zestril) 20 mg DAILY PO Last administered on 05/31/18 09:57; Admin Dose 20 MG; Start 05/25/18 at 09:00 Alprazolam (Xanax) 0.5 mg QHS PRN PO ANXIETY/insomnia Last administered on 05/30/18at 23:26; Admin Dose 0.5 MG; Start 05/24/18 at 20:18 Furosemide (Lasix) 20 mg DAILY PO Last administered on 05/31/18at 09:57; Admin Dose 20 MG; Start 05/30/18 at 09:00 CE GEORGE NP May 31, 2018 12:58
[2018-05-31 14:00] VITALS: BP 126/47; PULSE 90; RESP 20
[2018-05-31 19:45] VITALS: BP 135/68; PULSE 88; RESP 18
[2018-05-31] MEDS: SENNA TAB PO SCH (21:00)
[2018-05-31] MEDS: ALPRAZOLAM 0.25 MG TAB PO PRN (23:30)
[2018-06-01 02:03] VITALS: BP 128/72; PULSE 84; RESP 18
[2018-06-01] MEDS: PANTOPRAZOLE (EC) 40 MG TAB PO SCH (06:09)
[2018-06-01 07:30] VITALS: BP 178/80; PULSE 90; RESP 18
[2018-06-01 08:00] VITALS: BP 132/85; RESP 19
[2018-06-01] MEDS: DOCUSATE SODIUM 100 MG CAP PO SCH (09:00)
[2018-06-01] MEDS: LISINOPRIL 20 MG TAB PO SCH (09:25)
[2018-06-01] MEDS: THIAMINE 100 MG TAB PO SCH (09:25)
[2018-06-01] MEDS: FOLIC ACID 1 MG TAB PO SCH (09:25)
[2018-06-01] MEDS: FUROSEMIDE 20 MG TAB PO SCH (09:26)
--- NOTE | 2018-06-01 10:25 | PN ---
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 As per Dr. Benitez (2) Essential hypertension Status: Chronic Comment: Fair control. Increase lisinopril (3) Anemia Status: Chronic Comment: Noted and probably a toxic effect of the alcohol on the bone marrow Qualifiers: Anemia type: unspecified type Qualified Codes: D64.9 - Anemia, unspecified (4) Obesity (BMI 30-39.9) Status: Chronic Comment: Counseled (5) Alcohol abuse Status: Chronic Comment: Strongly counseled Subjective 24 Hr Interval Summary Free Text/Dictation Patient reports he is doing well is going home today Constitutional: no complaints Respiratory: no complaints Cardiovascular: no complaints Gastrointestinal: no complaints Genitourinary: no complaints Exam/Review of Systems Exam Vitals Vital Signs Date Temp Pulse Resp B/P (MAP) Pulse Ox O2 O2 Flow FiO2 Time Delivery Rate 06/01/18 99.0 90 18 178/80 96 Room Air 07:30 (112) 06/01/18 2.0 00:20 Intake and Output 05/31/18 05/31/18 06/01/18 1515:00 23:00 07:00 IntakeIntake Total 200 ml 1100 ml 750 ml OutputOutput Total 1860 ml 600 ml BalanceBalance 200 ml -760 ml 150 ml Constitutional: alert, oriented Respiratory: clear to auscultation, normal air movement Cardiovascular: regular rate and rhythm, nl pulses Medications Medication Current Medications Al Hydrox/Mg Hydrox/Simethicone (Mag-Al Plus) 30 ml Q6H PRN PO GASTROINTESTINAL UPSET Last administered on 05/29/18at 01:59; Admin Dose 30 ML; Start 05/22/18 at 23:30 Folic Acid (Folic Acid) 1 mg DAILY PO Last administered on 06/01/18at 09:25; Admin Dose 1 MG; Start 05/23/18 at 09:00 Pantoprazole (Protonix Tab) 40 mg DAILY@06 PO Last administered on 06/01/18 06:09; Admin Dose 40 MG; Start 05/23/18 at 06:00 IV Flush (NS 3 ml) 3 ml PER PROTOCOL IV ; Start 05/22/18 at 23:45 Docusate Sodium (Colace) 100 mg BID PO Last administered on 05/31/18 09:57; Admin Dose 100 MG; Start 05/23/18 at 09:00 Senna (Senokot) 1 tab HS PO Last administered on 05/26/18 20:41; Admin Dose 1 TAB; Start 05/23/18 at 21:00 Acetaminophen (Tylenol Tab) 650 mg Q4H PRN PO MILD PAIN(1-3)OR ELEVATED TEMP Last administered on 05/25/18 21:01; Admin Dose 650 MG; Start 05/23/18 at 02:30 Bisacodyl (Dulcolax Supp) 10 mg DAILY PRN [place] CONSTIPATION; Start 05/23/18 at 02:30 Magnesium Hydroxide (Milk Of Mag) 30 ml BID PRN PO CONSTIPATION; Start 05/23/18 at 02:30 Lactulose (Enulose) 20 gm DAILY PRN PO CONSTIPATION; Start 05/23/18 at 02:30 Thiamine HCl (Vitamin B1) 100 mg DAILY PO Last administered on 06/01/18 09:25; Admin Dose 100 MG; Start 05/24/18 at 09:00 Lisinopril (Zestril) 20 mg DAILY PO Last administered on 06/01/18 09:25; Admin Dose 20 MG; Start 05/25/18 at 09:00 Alprazolam (Xanax) 0.5 mg QHS PRN PO ANXIETY/insomnia Last administered on 05/31/18 23:30; Admin Dose 0.5 MG; Start 05/24/18 at 20:18 Furosemide (Lasix) 20 mg DAILY PO Last administered on 06/01/18 09:26; Admin Dose 20 MG; Start 05/30/18 at 09:00 ARTHUR MCGINNIS MD Jun 01, 2018 10:25
[2018-06-02] MEDS ORDERED: LISINOPRIL 20 MG TAB PO SCH (09:00)
--- NOTE | 2018-06-05 13:43 | DS ---
Date/Time of Note Date/Time of Note DATE: 06/05/18 TIME: 13:42 Discharge Summary Admission/Discharge Info Admit Date/Time May 22, 2018 at 19:59 Discharge Date/Time Jun 01, 2018 at 11:30 Discharge Diagnosis 1. 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 2. Status post ETOH withdrawal. 3. Hypertension. 4. Improvements in self-care and mobility. Patient Condition: Good Hospital Course The patient was admitted for comprehensive interdisciplinary rehabilitation and made steady functional gains from a Min/Mod level to a S/AL level for self care tasks and mobility including ambulating over 200 feet with the use of a FWW. Patient is being discharged home with the recommendation of home health PT, OT and RN follow up. The DC meds are per the medication reconciliation sheet. The discharge equipment recommendations include: FWW, BSC, shower chair. The patient will follow up with PMD upon DC. Home Meds Active Scripts Chlordiazepoxide* (Chlordiazepoxide*) 25 Mg Capsule, 25 MG PO Q8 PRN for CONTROL WITHDRAWAL SYMPTOMS, #30 CAP Prov:KEITH SAUCEDA 05/21/18 Prednisone* (Prednisone*) 20 Mg Tab, 60 MG PO DAILY for 5 Days, TAB Prov:MAN BERGERON DO 05/18/18 Albuterol Sulfate* (Proair HFA*) 8.5 Gm Hfa.aer.ad, 2 PUFF INH Q4, #1 INHALER Prov:MAN BERGERON DO 05/18/18 Lorazepam* (Lorazepam*) 1 Mg Tablet, 1 MG PO Q8H PRN for ANXIETY, #10 TAB Prov:MAN BERGERON DO 05/18/18 Primary Care Provider Not On Staff Doctor YULIANA ROBLES MD Jun 05, 2018 13:43
== END 2018-06-01 11:30 | disposition home health service (06) | DRG 74 ==
LOC: VRC 19:59
PROVIDERS: ADMIT Physical Medicine & Rehabilitation; ATTEND Internal Medicine Pulmonary Disease
PROC: F07Z5ZZ Bed Mobility Treatment (ICD-10-PCS; principal; 2018-05-22)
PROC: F08Z2ZZ Grooming/Personal Hygiene Treatment (ICD-10-PCS; 2018-05-22)
PROC: 3E0F7GC Introduction of Other Therapeutic Substance into Respiratory Tract, Via Natural or Artificial Opening (ICD-10-PCS; 2018-05-28)
DX: G62.1 Alcoholic polyneuropathy (principal); F10.10 Alcohol abuse, uncomplicated; D64.89 Other specified anemias; I10 Essential (primary) hypertension; E66.9 Obesity, unspecified; Z68.36 Body mass index [BMI] 36.0-36.9, adult; D64.9 Anemia, unspecified; M79.89 Other specified soft tissue disorders; F06.31 Mood disorder due to known physiological condition with depressive features; F10.20 Alcohol dependence, uncomplicated
CPT/HCPCS: 80053; 80061; 81001; 83036; 83880; 85025; 87081; 87086; 93306; 93970; 97110; 97112; 97116; 97140; 97163; 97167; 97530; 97535; J0360; J1940; J3411; J7030